=== PATIENT | male | born 1995 | race American Indian/Alaskan Native ===

== ENCOUNTER 2020-06-17 15:13 | Emergency (ER) | payer MEDICAID, SELFPAY ==
[2020-06-17 17:44] VITALS: BP 119/79; PULSE 64; RESP 18; TEMP 37.4; O2SAT 99; BMI 20.9
--- NOTE | 2020-06-17 18:41 | ED_ITS ---
HPI - Headache General Chief Complaint: Headache Stated Complaint: headache Time Seen by Provider: 06/17/20 18:30 Source: patient Mode of arrival: ambulatory History of Present Illness HPI Narrative: patient is a 25-year-old male with past medical history of migraines, substance abuse including ETOH and marijuana, syncope complaining of a headache, nausea and 1 episode of vomiting yesterday, 1 episode of vomiting today. Denies fevers chills cough congestion shortness of breast chest pain. states he has not been able to keep any food down since yesterday. He denies using any marijuana the past 3 days and says he only smokes a half a joint per day. He did say he took some Advil with no relief and some Pepto-Bismol with with no relief. Denies any sick contacts, trauma, photophobia or phonophobia. Related Data Allergies Allergy/AdvReac Type Severity Reaction Status Date / Time No Known Allergies Allergy Verified 06/17/20 17:44 [No Known Allergies*] Review of Systems Review of Systems: Constitutional: No Weight loss, No Fever, No Chills, No Night Sweats, No Fatigue, No Malaise ENT/Mouth: No Hearing loss, No Ear Pain, No Nasal Congestion, No Sinus Pain, No Hoarseness, No sore throat, No Rhinorrhea, No Swallowing Difficulty Cardiovascular: No Chest Pain, No SOB, No Dyspnea on Exertion, No Orthopnea, No Edema, No Palpitations Respiratory: No Cough, No Sputum, No Wheezing, No Smoke Exposure, No Dyspnea Gastrointestinal: + Nausea,+ Vomiting, No Diarrhea, No Constipation, No abdominal Pain, No Hematochezia, No Melena Genitourinary: no irregular bleeding, No Dysuria, No Urinary Frequency, No Hematuria, No Urinary Incontinence, No Urgency, No Flank Pain, No Urinary Flow Changes, No Hesitancy Musculoskeletal: No joint pain, No Myalgias, No Joint Swelling Skin: No Skin Lesions, No rash Neuro: + headache, No Weakness, No Numbness, No Paresthesias, No Loss of Consciousness, No Dizziness Yes all other systems are reviewed and are negative [facility] Past Medical History Attestation statement: The following information was validated with the patient. Medical History (Updated 06/17/20 @ 20:09 by MARGARITO Guillen) Migraines Substance use disorder Syncope Social History Social History (Updated 06/17/20 @ 18:45 by MARGARITO Guillen) Use of substances other than those prescribed or required for medical reasons: Yes Substance Use Type: Marijuana Substance Use Frequency: Daily Last Used Substance Other:: 3 days ago, admits to half a blunt per day Advance Directives: No Advance Directives Information Provided: No Physical Exam Vital Signs: Vital Signs: Vital Signs Temp Pulse Resp BP Pulse Ox 06/17/20 17:44 99.3 F 64 18 119/79 99 Body Mass Index 20.9 Const: General: cooperative, healthy appearing, comfortable, no acute distress and well developed Orientation/consciousness: patient oriented x3 Limitations: no limitations HENMT: Head: Yes normal to inspection Eyes: General: appearance normal, both eyes and all related structures Pupils: Equal, round and reactive pupils present Neck: Neck: Yes normal visual inspection, Yes full ROM and Yes supple Chest: Chest palpation & inspection: normal inspection of the chest Resp: Effort & Inspection: normal respiratory effort and able to speak in complete sentences Auscultation: clear to auscultation bilaterally Cardio: Rate: regular rate Rhythm: regular rhythm Heart sounds: normal S1 and S2 GI: Inspection: Yes normal to inspection Palpation (GI): Soft to palpation, nontender and No hepatosplenomegaly present Auscultation: normal bowel sounds Skin: General skin exam: no rashes or lesions noted Neuro: General: patient oriented x3 Cranial nerves: Yes Equal, round and reactive pupils present Extrem: General: Yes normal to inspection Psych: Appearance: grossly normal Course Course Course Narrative: patient is a 25-year-old male with past medical history of migraines, substance abuse including marijuana and EtOH, syncope complaining of 2 days of reduced appetite, nausea and 2 episodes of vomiting. Will get labs, give IV fluids, Reglan, Toradol and reassess. 8:08pm Went to check on patient to see how he was feeling and he was not in the room, the nurse states she has not seen him in about 45 minutes. No labs were drawn. He did received Toradol and Reglan. Assuming he left on his own. MDM - Headache Differential Diagnosis Differential diagnosis: Likely migraine, meningitis ( no meningeal signs so very unlikely) and postconcussion syndrome ( No trauma so less likely) Medical Records Attestation: I reviewed the patient's medical records. Discharge Plan Discharge Clinical Impression: Migraines Qualifiers: Migraine type: without aura Status migrainosus presence: without status migrainosus Intractability: not intractable Qualified Code(s): G43.009 - Migraine without aura, not intractable, without status migrainosus Patient Disposition: Elopement
== END 2020-06-17 20:54 | disposition left against medical advice (07) ==
PROVIDERS: Emergency Provider Internal Medicine
DX: G43.009 Migraine without aura, not intractable, without status migrainosus (principal); F12.90 Cannabis use, unspecified, uncomplicated; R11.2 Nausea with vomiting, unspecified
CPT/HCPCS: 96361; 96374; 96375; 99283; 99284

== ENCOUNTER 2020-08-19 11:59 | Outpatient (REF) | payer MEDICAID, SELFPAY | END 2020-08-19 12:00 | disposition home or self-care (01) | LOC: HO.LAB 11:59 | PROVIDERS: Visit Provider Internal Medicine | DX: Z20.828 Contact with and (suspected) exposure to other viral communicable diseases (principal) | CPT/HCPCS: C9803; U0003 ==

== ENCOUNTER 2022-11-26 17:53 | Emergency (ER) | payer MEDICAID, SELFPAY ==
[2022-11-26 18:09] VITALS: BP 146/90; PULSE 73; RESP 18; TEMP 37.1; O2SAT 98; BMI 22.6
--- NOTE | 2022-11-26 18:10 | ED_ITS ---
HPI - Male Genitourinary General Chief complaint: Skin/Abscess/Foreign Body <MARGARITO Maharaj Last Filed: 11/26/22 18:13> Stated complaint: private issue <MARGARITO Maharaj Last Filed: 11/26/22 18:13> Time Seen by Provider: 11/26/22 20:53 <MARGARITO Maharaj Last Filed: 11/26/22 18:13> Source: patient <MARGARITO Maguire Last Filed: 11/26/22 22:22> Mode of arrival: ambulatory <MARGARITO Maguire Last Filed: 11/26/22 22:22> Limitations: no limitations <MARGARITO Maguire Last Filed: 11/26/22 22:22> History of Present Illness HPI Narrative: This is a 27-year-old male history of substance use disorder, migraines presenting to the emergency department for evaluation of ulcers on penis that have been present for the past 4 days. Patient reports that these ulcers on the shaft of the penis or painful in some of them are crusting. This is never happened to him before. Patient tells me he is not concerned for STDs however would like prophylactic treatment. Patient denies testicular pain, penile discharge or bleeding, dysuria, polyuria, abdominal pain, nausea, vomiting, chest pain, shortness of breath, fevers and chills. <MARGARITO Maguire Last Filed: 11/26/22 22:22> Related Data Home medications: Previous Rx's Medication Instructions Recorded doxycycline hyclate 100 mg capsule 100 mg PO BID 10 days #20 caps 11/26/22 metronidazole 500 mg tablet 500 mg PO BID 7 days #14 tabs 11/26/22 valacyclovir 1 gram tablet 1,000 mg PO BID 7 days #14 tabs 11/26/22 (Valtrex) <MARGARITO Maharaj Last Filed: 11/26/22 18:13> Allergies/Adverse reactions: Allergies Allergy/AdvReac Type Severity Reaction Status Date / Time No Known Allergies Allergy Verified 06/17/20 17:44 [No Known Allergies*] <MARGARITO Maharaj Last Filed: 11/26/22 18:13> Review of Systems Review of Systems: Constitutional : No Weight loss, No Fever, No Chills, No Fatigue, No Malaise ENT/Mouth : No sore throat, No Rhinorrhea Eyes: No Eye Pain, No Swelling, No Redness Cardiovascular : No Chest Pain, No SOB, No Dyspnea on Exertion, No Orthopnea, No Edema, No Palpitations Respiratory : No Cough, No Sputum, No Wheezing Gastrointestinal : No Nausea, No Vomiting, No Diarrhea, No Constipation, No abdominal Pain, No Hematochezia, No Melena Genitourinary : No Dysuria, No Urinary Frequency, No Hematuria, + genital ulcer Musculoskeletal : No joint pain, No Myalgias, No Joint Swelling Skin : No Skin Lesions, No rash Neuro : No Weakness, No Numbness, No Dizziness, No Headache Psych : No Anxiety/Panic, No Depression All other systems reviewed and are negative <MARGARITO Maguire - Last Filed: 11/26/22 22:22> Yes all other systems are reviewed and are negative <MARGARITO Maguire - Last Filed: 11/26/22 22:22> FOR[facility]LY [facility], [facility] Past Medical History Attestation statement: The following information was validated with the patient. <MARGARITO Maguire - Last Filed: 11/26/22 22:22> Source: old records reviewed and nursing notes reviewed <MARGARITO Maguire - Last Filed: 11/26/22 22:22> Medical History: Medical History Migraines Substance use disorder Syncope <MARGARITO Maharaj - Last Filed: 11/26/22 18:13> Social History Social History: Social History Substance Use Type: Marijuana Advance Directives: No Advance Directives Information Provided: Yes <MARGARITO Maharaj - Last Filed: 11/26/22 18:13> Physical Exam Vital Signs: Vital Signs: Last Vital Signs Temp 98.7 F 11/26/22 20:56 Pulse 66 11/26/22 20:56 Resp 17 11/26/22 20:56 BP 145/75 H 11/26/22 20:56 Pulse Ox 100 11/26/22 20:56 O2 Del Method Room Air 11/26/22 20:56 BMI result Body Mass Index 22.6 <MARGARITO Maharaj - Last Filed: 11/26/22 18:13> Vital Signs: Last Vital Signs Temp 98.7 F 11/26/22 20:56 Pulse 66 11/26/22 20:56 Resp 17 11/26/22 20:56 BP 145/75 H 11/26/22 20:56 Pulse Ox 100 11/26/22 20:56 O2 Del Method Room Air 11/26/22 20:56 BMI result Body Mass Index 22.6 vss <MARGARITO Maguire - Last Filed: 11/26/22 22:22> Appearance: Alert.? Oriented X3.? No acute distress.? Head: Normocephalic, atraumatic, no step-offs or deformities Eyes: Pupils equal, round and reactive to light.? Neck: Normal inspection.? Neck supple.? CVS: Normal heart rate and rhythm.? Pulses normal.? Respiratory: No respiratory distress.? Breath sounds normal.? Abdomen: Soft and nontender.? Skin: Skin warm and dry.? Normal skin color.? Normal skin turgor.? Extremities: No lower extremity edema.? No calf ttp. 5/5 strength to bilateral upper and lower extremities Sensitive exam: + genital ulcer to the 03:00 o'clock and 9 o'clock position on shaft of penis painful to palpation with slight crusting and discharged. No penile discharge. No tenderness to palpation of testicles. Neuro: Oriented X 3.? No motor deficit.? No sensory deficit. CN 2-12 intact <MARGARITO Maguire - Last Filed: 11/26/22 22:22> Course Course Course Narrative: RME - 27 yo male presents to the ER for evaluation of a painful pimple on his penis for the last 3 days. No urinary symptoms or discharge. Will plan for UA, CT/NG and herpes swab. +/- syphilis depending on exam. <MARGARITO Maharaj - Last Filed: 11/26/22 18:13> Reevaluation(s) Reevaluation #1: UA without infection. Chlamydia, gonorrhea, herpes and syphilis pending at this time. Labs are pending on patient. <MARGARITO Maguire - Last Filed: 11/26/22 22:22> Time: 21:41 <MARGARITO Maguire - Last Filed: 11/26/22 22:22> Reevaluation #2: CBC within normal limits. Chemistry unremarkable. Serology pending. Safe to give viral test at this time is patient has normal renal function. Educated patient on diagnosis and treatment plan, answered all question, patient verbalizes understanding. At this time patient will be discharged home, advised to return with new or worsening symptoms. Educated on worrisome signs and symptoms and when to return. At this time I feel comfortable discharge home. <MARGARITO Maguire - Last Filed: 11/26/22 22:22> Time: 22:21 <MARGARITO Maguire - Last Filed: 11/26/22 22:22> Medical Decision Making Medical Decision Making [facility] Narrative: [id number] This is a 27-year-old male history of substance use disorder, migraines presenting to the emergency department for evaluation of ulcers on penis that have been present for the past 4 days. On exam genital ulcer to the 03:00 o'clock and 9 o'clock position on shaft of penis painful to palpation with slight crusting and discharged. No penile discharge. No tenderness to palpation of testicles. Kamron waldrop at bedside as wedding decorator Concerns for genital herpes. Other differentials include STDs , UTI versus cystitis, contact dermatitis, eczema Plan at this time is prophylactic treatment as patient is agreeable to it. I will obtain baseline renal functions prior to initiating antiviral therapy Patient agrees to prophylactic treatment for herpes, gonorrhea, chlamydia and trichomonas. 500mg IM ceftriaxone has been given here and scripts for doxycycline 100 mg po BID X 7 days, valacyclovir 100 mg p.o. b.i.d. x7 days and metronidazole 500 mg po BID X 7 days have been given to the patient. Educated on safe sex practices, full pannel STD testing and speaking to? partners on possible STD. Plan urine, syphillis test <MARGARITO Maguire - Last Filed: 11/26/22 22:22> Differential Diagnosis Differential Diagnoses: The differential diagnosis associated with the presentation includes <MARGARITO Maguire Last Filed: 11/26/22 22:22> Concerns for genital herpes. Other differentials include STDs , UTI versus cystitis, contact dermatitis, eczema <MARGARITO Maguire - Last Filed: 11/26/22 22:22> Admission/Observation Consideration of admission/observation: Escalation of care including admission/observation considered <MARGARITO Maguire - Last Filed: 11/26/22 22:22> Lab Data MDM Lab Attestation statement: I reviewed the patient's lab results. <MARGARITO Maguire - Last Filed: 11/26/22 22:22> Result Diagrams: 11/26/22 21:42 11/26/22 21:42 <MARGARITO Maharaj - Last Filed: 11/26/22 18:13> Labs: Lab Results 11/26/22 11/26/22 11/26/22 Range/Units 20:50 21:42 21:42 WBC 9.4 (4.8-10.8) X10*3/uL RBC 4.76 (4.60-5.80) X10*6/uL Hgb 14.9 (14.0-18.0) g/dl Hct 43.8 (42.0-52.0) % MCV 92.0 (80.0-98.0) fL MCH 31.3 (27.0-33.0) pg MCHC 34.0 (31.0-36.0) g/dl RDW 11.4 (11.0-16.0) % Plt Count 243 (160-400) X10*3/uL MPV 10.7 (9.4-12.4) fL Immature Gran % (Auto) 0.3 (0.0-0.4) % Neut % (Auto) 59.9 (45-73) % Lymph % (Auto) 28.7 (20-40) % [place] % (Auto) 7.8 (2-11) % Eos % (Auto) 2.8 (0-4) % Baso % (Auto) 0.5 (0-2) % Lymph # (Auto) 2.7 (1.2-4.9) X10*3/uL [place] # (Auto) 0.7 (0.1-1.2) X10*3/uL Eos # (Auto) 0.3 (0.0-0.4) X10*3/uL Baso # (Auto) 0.1 (0.0-0.2) X10*3/uL Abs Immat Gran (auto) 0.03 (0.00-0.03) X10*3/uL Absolute Neuts (auto) 5.6 (2.0-8.3) x10*3/uL Absolute Nucleated RBC 0.000 (0.0-0.012) X10*3/uL Nucleated RBC % (auto) 0.0 (0.0-0.2) /100WBC Sodium 142 (135-145) mmol/L Potassium 4.3 (3.3-5.1) mmol/L Chloride 103 (96-108) mmol/L Carbon Dioxide 30 H (22-29) mmol/L Anion Gap 13 (12-20) BUN 14 (9-16) mg/dL Creatinine 1.10 (0.5-1.4) mg/dL Estim Creat Clear Calc 104.0 Estimated GFR > 60 Random Glucose 73 (60-115) mg/dL Calcium 9.8 (8.4-10.2) mg/dL Total Bilirubin 0.8 (0.0-1.0) mg/dL AST 22 (5-37) U/L ALT 22 (0-40) U/L Alkaline Phosphatase 88 (39-117) U/L Total Protein 7.3 (6.5-8.0) g/dL Albumin 4.7 (3.5-5.0) g/dL Urine Color Yellow Urine Appearance Clear Urine pH 6.0 (5.0-9.0) Ur Specific [place] 1.020 (1.005-1.025) Urine Protein Negative (Neg-Trace) mg/dL Urine Glucose (UA) Negative (Negative) mg/dL Urine Ketones Negative (Negative) mg/dL Urine Blood Negative (Negative) Urine Nitrite Negative (Negative) Ur Leukocyte Esterase Trace H (Negative) Urine RBC 0-2 (0-2) /HPF Urine WBC 6-10 H (0-5) /HPF Ur Squamous Epith Cells 0-2 (0-2) /HPF Urine Bacteria None Seen (None Seen) Hyaline Casts 0-2 (0-2) /LPF <MARGARITO Maharaj - Last Filed: 11/26/22 18:13> Lab Results 11/26/22 11/26/22 11/26/22 Range/Units 20:50 21:42 21:42 WBC 9.4 (4.8-10.8) X10*3/uL RBC 4.76 (4.60-5.80) X10*6/uL Hgb 14.9 (14.0-18.0) g/dl Hct 43.8 (42.0-52.0) % MCV 92.0 (80.0-98.0) fL MCH 31.3 (27.0-33.0) pg MCHC 34.0 (31.0-36.0) g/dl RDW 11.4 (11.0-16.0) % Plt Count 243 (160-400) X10*3/uL MPV 10.7 (9.4-12.4) fL Immature Gran % (Auto) 0.3 (0.0-0.4) % Neut % (Auto) 59.9 (45-73) % Lymph % (Auto) 28.7 (20-40) % [place] % (Auto) 7.8 (2-11) % Eos % (Auto) 2.8 (0-4) % Baso % (Auto) 0.5 (0-2) % Lymph # (Auto) 2.7 (1.2-4.9) X10*3/uL [place] # (Auto) 0.7 (0.1-1.2) X10*3/uL Eos # (Auto) 0.3 (0.0-0.4) X10*3/uL Baso # (Auto) 0.1 (0.0-0.2) X10*3/uL Abs Immat Gran (auto) 0.03 (0.00-0.03) X10*3/uL Absolute Neuts (auto) 5.6 (2.0-8.3) x10*3/uL Absolute Nucleated RBC 0.000 (0.0-0.012) X10*3/uL Nucleated RBC % (auto) 0.0 (0.0-0.2) /100WBC Sodium 142 (135-145) mmol/L Potassium 4.3 (3.3-5.1) mmol/L Chloride 103 (96-108) mmol/L Carbon Dioxide 30 H (22-29) mmol/L Anion Gap 13 (12-20) BUN 14 (9-16) mg/dL Creatinine 1.10 (0.5-1.4) mg/dL Estim Creat Clear Calc 104.0 Estimated GFR > 60 Random Glucose 73 (60-115) mg/dL Calcium 9.8 (8.4-10.2) mg/dL Total Bilirubin 0.8 (0.0-1.0) mg/dL AST 22 (5-37) U/L ALT 22 (0-40) U/L Alkaline Phosphatase 88 (39-117) U/L Total Protein 7.3 (6.5-8.0) g/dL Albumin 4.7 (3.5-5.0) g/dL Urine Color Yellow Urine Appearance Clear Urine pH 6.0 (5.0-9.0) Ur Specific [place] 1.020 (1.005-1.025) Urine Protein Negative (Neg-Trace) mg/dL Urine Glucose (UA) Negative (Negative) mg/dL Urine Ketones Negative (Negative) mg/dL Urine Blood Negative (Negative) Urine Nitrite Negative (Negative) Ur Leukocyte Esterase Trace H (Negative) Urine RBC 0-2 (0-2) /HPF Urine WBC 6-10 H (0-5) /HPF Ur Squamous Epith Cells 0-2 (0-2) /HPF Urine Bacteria None Seen (None Seen) Hyaline Casts 0-2 (0-2) /LPF <MARGARITO Maguire - Last Filed: 11/26/22 22:22> Core Measures AMI core measures followed: Yes <MARGARITO Maguire - Last Filed: 11/26/22 22:22> Measure exclusions: not indicated <MARGARITO Maguire - Last Filed: 11/26/22 22:22> Critical Care Time Critical Care Time Critical Care Time: No <MARGARITO Maguire - Last Filed: 11/26/22 22:22> Discharge Plan Discharge Clinical Impression: Penile ulcer <MARGARITO Maharaj - Last Filed: 11/26/22 18:13> Patient Disposition: Home, Self-Care <MARGARITO Maharaj - Last Filed: 11/26/22 18:13> Instructions: Sexually Transmitted Diseases (ED), Safe Sex Practices (ED), Sexually Transmitted Diseases in Adolescents (ED) <MARGARITO Maharaj - Last Filed: 11/26/22 18:13> Additional Instructions: Take your medications as prescribed. If you were prescribed antibiotics today, it is important that you take your medication to their entirety, do not skip any doses, do not finish them early. Follow-up with your primary care provider this week. Return to the emergency department with new or worsening symptoms. Such as fevers, chills, chest pain, shortness of breath, nausea, vomiting, dizziness, headache, vision changes, lethargy In case of emergency call 911 You were treated here today with ceftriaxone, a medication that treats gonor christi. I have sent to your pharmacy Metronidazole that covers trichomonas, and Doxycycline which covers for chlamydia as well as valcyclovir that covers for herpes. Please be reevaluated by a healthcare provider after completing your antibiotics. Do not stop them early, do not skip any doses. Until you are reevaluated by a health care provider please practice safe sex as disucussed. Please also have a conversation with your sexual partners.? I also advise you to obtain full panel STD testing to test for other STDs including HIV, Hepatitis B & C and syphilis with your PCP or a local clinic. <MARGARITO Maharaj - Last Filed: 11/26/22 18:13> Prescriptions: New doxycycline hyclate 100 mg capsule 100 mg PO BID 10 Days Qty: 20 0RF metronidazole 500 mg tablet 500 mg PO BID 7 Days Qty: 14 0RF valacyclovir [Valtrex] 1 gram tablet 1,000 mg PO BID 7 Days Qty: 14 0RF <MARGARITO Maharaj - Last Filed: 11/26/22 18:13> Referrals: Physician,None [Primary Care Provider] - 2 days <MARGARITO Maharaj - Last Filed: 11/26/22 18:13> Stand Alone Forms: Work/School Release <MARGARITO Maharaj - Last Filed: 11/26/22 18:13>
[2022-11-26 20:56] VITALS: BP 145/75; PULSE 66; RESP 17; TEMP 37.1; O2SAT 100
[2022-11-26 20:58] LABS: Appearance Urine Clear; Color Urine Yellow; Glucose Urine UA Negative (Negative); Leukocyte Esterase Urine Trace (Negative); Nitrite Urine Negative (Negative); UMIC TRIGGER UACC YES; Urine Blood Negative (Negative); Urine Ketones Negative (Negative); Urine Protein Negative (Neg-Trace)
[2022-11-26 21:24] LABS: Bacteria Urine None Seen (None Seen); Hyaline Casts Urine 0-2 /LPF (0-2); RBC Urine 0-2 /HPF (0-2); Squamous Epithelial Cell Urine 0-2 /HPF (0-2); UACC Culture Trigger YES
[2022-11-26 21:52] LABS: MANUAL DIFF FLAG NO
[2022-11-26 22:02] LABS: Basophils Absolute Auto 0.1 X10*3/uL (0.0-0.2); Basophils Percent Auto 0.5 % (0-2); Eosinophils Absolute Auto 0.3 X10*3/uL (0.0-0.4); Eosinophils Percent Auto 2.8 % (0-4); Hematocrit 43.8 % (42.0-52.0); Hemoglobin 14.9 g/dl (14.0-18.0); Imm Gran Abs Auto 0.03 X10*3/uL (0.00-0.03); Imm Gran Pct Auto 0.3 % (0.0-0.4); Lymphocytes Absolute Auto 2.7 X10*3/uL (1.2-4.9); Lymphocytes Percent Auto 28.7 % (20-40); Mean Corpuscular Hemoglobin 31.3 pg (27.0-33.0); Mean Platelet Volume 10.7 fL (9.4-12.4); Monocytes Absolute Auto 0.7 X10*3/uL (0.1-1.2); Monocytes Percent Auto 7.8 % (2-11); Neutrophils Absolute Auto 5.6 x10*3/uL (2.0-8.3); Neutrophils Percent Auto 59.9 % (45-73); Platelet Count 243 X10*3/uL (160-400); Red Blood Count 4.76 X10*6/uL (4.60-5.80); Red Cell Distribution Width 11.4 % (11.0-16.0); White Blood Count 9.4 X10*3/uL (4.8-10.8)
[2022-11-26 22:08] LABS: Alanine Aminotransferase 22 U/L (0-40); Albumin Level 4.7 g/dL (3.5-5.0); Alkaline Phosphatase 88 U/L (39-117); Anion Gap 13 (12-20); Aspartate Amino Transferase 22 U/L (5-37); Bilirubin Total 0.8 mg/dL (0.0-1.0); Blood Urea Nitrogen 14 mg/dL (9-16); Calcium 9.8 mg/dL (8.4-10.2); Carbon Dioxide 30 mmol/L (22-29); Chloride 103 mmol/L (96-108); Estimated Glomerular Filt Rate > 60; Glucose Random 73 mg/dL (60-115); Potassium 4.3 mmol/L (3.3-5.1); Sodium 142 mmol/L (135-145); Total Protein 7.3 g/dL (6.5-8.0)
[2022-11-26] MEDS: Doxycycline Monohydrate 100 MG CAPSULE PO (22:46)
[2022-11-26] MEDS: valACYclovir HCL 1,000 MG TABLET 1000 MG PO (22:47)
[2022-11-26] MEDS: metroNIDAZOLE 500 MG TABLET PO (22:47)
[2022-11-26] MEDS: cefTRIAXone sodium 500 MG, Lidocaine HCl 1 % MPF 1 ML IM (22:47)
[2022-11-27 02:26] LABS: CT PCR DETECTED (Not Detect.); NG PCR NOT DETECTED (Not Detect.)
[2022-11-27 07:31] LABS: Syphilis Screen Nonreactive (Nonreactive)
== END 2022-11-26 22:59 | disposition home or self-care (01) ==
PROVIDERS: Physician Assistant; Emergency Provider Emergency Medicine Emergency Medical Services
DX: N48.5 Ulcer of penis (principal); G43.909 Migraine, unspecified, not intractable, without status migrainosus; Z79.899 Other long term (current) drug therapy; Z20.2 Contact with and (suspected) exposure to infections with a predominantly sexual mode of transmission
CPT/HCPCS: 0353U; 36415; 80053; 81001; 81003; 85025; 86780; 87086; 87255; 96372; 99283; 99284; J0696

== ENCOUNTER 2024-03-03 14:09 | Emergency (ER) | payer MEDICAID, SELFPAY ==
[2024-03-03 14:14] VITALS: BP 139/89; PULSE 59; RESP 18; TEMP 36.6; O2SAT 99; BMI 21.9
--- NOTE | 2024-03-03 14:40 | ED_ITS ---
HPI - Male Genitourinary General Chief complaint: Urogenital-Male Stated complaint: painful urination Time Seen by Provider: 03/03/24 14:39 Source: patient Mode of arrival: ambulatory Limitations: no limitations History of Present Illness ED Provider: Pilar Hopper PA-C HPI Narrative: Patient is a 28 year old assigned male at with a history of substance use disorder and migraines presenting to the emergency department today with burning upon urination and a rash on his penis. Patient states that he has been having an excessive amount of sex over the last 3 days as well as burning with urination. Patient states that he has not been using any kind of lubrication during sexual intercourse, including condoms. Patient denies any dizziness, lightheadedness, abdominal pain, nausea, vomiting, fever, chills, blurry vision, double vision, loss of vision, chest pain, difficulty breathing, shortness of breath, back pain, night sweats, increased urinary frequency, increased urinary urgency, blood in his urine or stool, syncope or a near syncopal episode, recent trauma or falls, bowel incontinence, bladder incontinence, or any other complaints at this time. MD Complaint: dysuria and possible STD exposure Onset (ago): day(s) (3) Duration: constant Location: penis Severity: mild Severity scale (1-10): 4 Relieving factors: none Exacerbating factors: none Associated symptoms: Reports rash Related Data Sexually active: Yes Previous Rx's ?Medication ?Instructions ?Recorded doxycycline hyclate 100 mg capsule 100 mg PO BID 10 days #20 caps 11/26/22 metronidazole 500 mg tablet 500 mg PO BID 7 days #14 tabs 11/26/22 valacyclovir 1 gram tablet 1,000 mg PO BID 7 days #14 tabs 11/26/22 (Valtrex) cephalexin 500 mg capsule 500 mg PO Q6H 7 days #28 caps 03/03/24 doxycycline hyclate 100 mg tablet 100 mg PO BID 7 days #14 tabs 03/03/24 Allergies Allergy/AdvReac Type Severity Reaction Status Date / Time No Known Allergies Allergy Verified 03/03/24 14:16 [No Known Allergies*] Review of Systems Constitutional: Constitutional: Reports no additional constitutional complaints, Denies chills, Denies fever(s) and Denies night sweats Eyes: Eyes: Reports no additional eye complaints, Denies blurry vision, Denies change in vision, Denies diplopia, Denies eye discharge, Denies loss of vision and Denies eye pain ENT: Denies dizziness Cardiovascular: Cardiovascular: Reports no additional cardiovascular complaints, Denies chest pain, Denies lightheadedness, Denies Loss of Consciousness and Denies dyspnea Respiratory: Respiratory: Reports no additional respiratory complaints and Denies dyspnea Gastrointestinal: Gastrointestinal: Reports no additional gastrointestinal complaints, Denies abdominal pain, Denies melena, Denies hematochezia, Denies change in bowel habits and Denies change in stool character Genitourinary: Genitourinary: Reports no additional male genitourinary complaints, Denies hematuria, Denies oliguria, Denies difficulty urinating, Reports genital pain, Reports dysuria, Denies urinary frequency, Denies urinary hesitancy, Denies urinary incontinence and Denies urinary urgency Musculoskeletal: Musculoskeletal: Reports no additional musculoskeletal com plaints, Denies numbness and Denies tingling Neurologic: Denies dizziness, Denies loss of vision, Denies numbness and Denies tingling Psychiatric: Psychiatric: Reports no additional psychiatric complaints Endocrine: Endocrine: Reports no additional endocrine complaints Hematologic/Lymphatic: Hematologic/Lymphatic: Reports no additional hematologic/lymphatic complaints Allergic/Immunologic: Allergic/Immunologic: Reports no additional allergic/immunologic complaints PMFSH Past Medical History Attestation statement: The following information was validated with the patient. Source: old records reviewed and nursing notes reviewed Medical History Syncope Substance use disorder Migraines Social History Social History Substance Use Type: Marijuana Advance Directives: No Advance Directives Information Provided: Yes Do you have a plan to hurt others: No Plan Physical Exam Vital Signs: Vital Signs: Last Vital Signs Temp 97.8 F 03/03/24 16:38 Pulse 59 03/03/24 16:38 Resp 18 03/03/24 16:38 BP 139/89 03/03/24 16:38 Pulse Ox 99 03/03/24 16:38 O2 Del Method Room Air 03/03/24 16:38 BMI result Body Mass Index 21.9 Const: General: cooperative, no acute distress, alert and awake Nutritional Appearance: well nourished Orientation/consciousness: patient oriented x3 Limitations: no limitations HEENT: Head: Yes normal to inspection and Yes atraumatic Ears: hearing grossly normal bilaterally and external ears normal General nose exam: Normal external nose present, no nasal discharge noted and no epistaxis Face and sinus: Yes normal facial exam, No abrasion and No laceration Mouth: Normal oral and palatal mucosa present, no drooling and no muffled voice Eyes: General: appearance normal, both eyes and all related structures Periorbital: periorbital findings normal Eyelids: Yes eyelids normal Conjunctivae: conjunctivae normal Pupils: Equal, round and reactive pupils present EOM: EOMs intact bilaterally Neck: Neck: Yes normal visual inspection, Yes full ROM and Yes no lymphadenopathy Chest: Chest palpation & inspection: normal inspection of the chest Resp: Effort & Inspection: normal respiratory effort and able to speak in complete sentences GI: Inspection: Yes normal to inspection : Male General Exam: Yes other (chafing present to the shaft of the penis) Neuro: General: patient oriented x3 and moves all extremities Cranial nerves: Yes Equal, round and reactive pupils present Cognition (Neuro): normal cognition Extrem: General: Yes normal to inspection, Yes full ROM and Yes capillary refill normal Psych: Appearance: grossly normal Mental Status: mental status grossly normal Affect: normal affect Attitude: cooperative Thought process: Normal thought process present Thought content: Normal thought content present Insight: Good insight present (Psych) Medications Administered Discontinued Medications Generic Name Dose Route Start Last Admin Trade Name Freq PRN Reason Stop Dose Admin Ceftriaxone Sodium 500 mg/ 0 mg 03/03/24 16:15 03/03/24 16:36 Lidocaine HCl 1 ml IM 03/03/24 16:16 500 kit ONCE ONE Administration Doxycycline Monohydrate 100 mg 03/03/24 16:15 03/03/24 16:36 Doxycycline Monohydrate 100 Mg Capsule PO 03/03/24 16:16 100 mg ONCE ONE Administration Medical Decision Making Medical Decision Making MDM Narrative: Patient is a 28 year old assigned male at with a history of migraines and substance use disorder presenting to the emergency department today for possible STD exposure, painful urination, and a rash on his penis. Patient's physical exam was as noted in the physical exam portion of this note. Patient's exam was performed with a male drug abuse technician director clinical applications present. Patient's urine showed no acute process. At the time of visit, patient's CT/NG was pending. I explained my physical exam findings as well as all test results to the patient. I answered all questions asked by the patient. I stressed the importance of the patient taking his medication as directed (either prescribed or as the over the counter packaging recommends). I stressed the importance of the patient following up with his primary care provider. I stressed the importance of the patient returning to the emergency department immediately if his symptoms were to worsen or if he were to develop any dizziness, shortness of breath, difficulty breathing, chest pain, blurry vision, loss of vision, nausea, vomiting, abdominal pain, fever, chills, back pain, or any other complaints. Patient verbalized agreement and understanding with this treatment plan and discharge. Differential Diagnosis Differential Diagnoses: The differential diagnosis associated with the presentation includes Penile pain Dysuria UTI Gonorrhea Chlamydia Admission/Observation Consideration of admission/observation: Escalation of care including admission/ observation considered Patient would have been admitted to the hospital had his work up had any findings where hospital admission was appropriate and his clinical presentation warranted hospital admission. Lab Data [facility] Lab Attestation statement: I reviewed the patient's lab results. My interpretation of these results are in the [facility] Rationale portion of this note. Labs: Lab Results 03/03/24 Range/Units 15:15 Urine Color Yellow Urine Appearance Clear Urine pH 6.0 (5.0-9.0) Ur Specific [place] 1.020 (1.005-1.025) Urine Protein Negative (Neg-Trace) mg/dL Urine Glucose (UA) Negative (Negative) mg/dL Urine Ketones Negative (Negative) mg/dL Urine Blood Trace H (Negative) Urine Nitrite Negative (Negative) Ur Leukocyte Esterase Negative (Negative) Urine RBC 6-10 H (0-2) /HPF Urine WBC 0-5 (0-5) /HPF Ur Squamous Epith Cells 0-2 (0-2) /HPF Urine Bacteria None Seen (None Seen) Hyaline Casts 0-2 (0-2) /LPF Chlam trachomat DNA PCR NOT DETECTED (Not Detect.) N.gonorrhoeae DNA (PCR) NOT DETECTED (Not Detect.) Prescription Management I considered prescription management with: Antibiotic (patient prescribed prophylactic antibiotics for STD exposure with a history of polysubstance use disorder) Discharge Plan Discharge Clinical Impression: [place], Potential exposure to STD Patient Disposition: Home, Self-Care Instructions: Safe Sex Practices (ED) Additional Instructions: Please consider using lubricant when engaging in any sexual activity to avoid continued chafing of your penis. Follow up with your primary care provider. Return to the emergency department immediately if your symptoms worsen or if you develop any dizziness, shortness of breath, difficulty breathing, chest pain, blurry vision, loss of vision, nausea, vomiting, abdominal pain, fever, chills, back pain, or any other complaints. Prescriptions: New cephalexin 500 mg capsule 500 mg PO Q6H 7 Days Qty: 28 0RF doxycycline hyclate 100 mg tablet 100 mg PO BID 7 Days Qty: 14 0RF No Action doxycycline hyclate 100 mg capsule 100 mg PO BID 10 Days Qty: 20 0RF metronidazole 500 mg tablet 500 mg PO BID 7 Days Qty: 14 0RF valacyclovir [Valtrex] 1 gram tablet 1,000 mg PO BID 7 Days Qty: 14 0RF Referrals: [facility] Family Medicine [Provider Group] (Call to establish and follow up with a primary care provider. If you already have a primary care provider, please follow up with them.) [facility] [Provider Group] [facility] [Provider Group] Stand Alone Forms: Work/School Release Interventions: ED Discharge Assessment Last Done: 03/03/24 16:38 Discharge Date/Time: 03/03/24 16:40 Print Language: Citizen [place]
--- NOTE | 2024-03-03 15:14 | PC.NURSE ---
urine obtained/sent to lab. pt verbalizing open sores on the side of the head of his penis. pt verbalizes painful when using soap in the shower. denies discharge/fevers/chills.
[2024-03-03 15:27] LABS: Appearance Urine Clear; Color Urine Yellow; Glucose Urine UA Negative (Negative); Leukocyte Esterase Urine Negative (Negative); Nitrite Urine Negative (Negative); UMIC TRIGGER UACC YES; Urine Blood Trace (Negative); Urine Ketones Negative (Negative); Urine Protein Negative (Neg-Trace)
[2024-03-03 15:32] LABS: Bacteria Urine None Seen (None Seen); Hyaline Casts Urine 0-2 /LPF (0-2); Squamous Epithelial Cell Urine 0-2 /HPF (0-2); WBC Urine 0-5 /HPF (0-5)
[2024-03-03] MEDS: Doxycycline Monohydrate 100 MG CAPSULE PO (16:36)
[2024-03-03] MEDS: cefTRIAXone sodium 500 MG, Lidocaine HCl 1 % MPF 1 ML IM (16:36)
[2024-03-03 16:38] VITALS: BP 139/89; PULSE 59; RESP 18; TEMP 36.6; O2SAT 99
--- NOTE | 2024-03-03 16:40 | PC.NURSE ---
medication administered per provider order.
[2024-03-03 16:53] LABS: CT PCR NOT DETECTED (Not Detect.); NG PCR NOT DETECTED (Not Detect.)
== END 2024-03-03 16:40 | disposition home or self-care (01) ==
PROVIDERS: Emergency Provider Emergency Medicine
DX: L30.4 Erythema intertrigo (principal); Z20.2 Contact with and (suspected) exposure to infections with a predominantly sexual mode of transmission; R30.0 Dysuria
CPT/HCPCS: 81001; 87491; 87591; 96372; 99282; 99284; J0696

== ENCOUNTER 2024-07-04 00:35 | Emergency (ER) | payer MEDICAID, SELFPAY ==
[2024-07-04 00:51] VITALS: BP 139/93; PULSE 118; RESP 18; TEMP 36.8; O2SAT 99; BMI 19.0
[2024-07-04 01:43] LABS: MANUAL DIFF FLAG NO
[2024-07-04 01:45] LABS: Basophils Percent Auto 0.3 % (0-2); Eosinophils Percent Auto 0.2 % (0-4); Hematocrit 40.4 % (42.0-52.0); Hemoglobin 13.8 g/dl (14.0-18.0); Imm Gran Abs Auto 0.06 X10*3/uL (0.00-0.03); Imm Gran Pct Auto 0.5 % (0.0-0.4); Lymphocytes Absolute Auto 1.2 X10*3/uL (1.2-4.9); Mean Corpuscular HGB Conc 34.2 g/dl (31.0-36.0); Mean Corpuscular Hemoglobin 31.8 pg (27.0-33.0); Mean Corpuscular Volume 93.1 fL (80.0-98.0); Mean Platelet Volume 10.8 fL (9.4-12.4); Monocytes Absolute Auto 0.6 X10*3/uL (0.1-1.2); Monocytes Percent Auto 5.1 % (2-11); Neutrophils Absolute Auto 10.2 x10*3/uL (2.0-8.3); Neutrophils Percent Auto 83.9 % (45-73); Platelet Count 204 X10*3/uL (160-400); Red Blood Count 4.34 X10*6/uL (4.60-5.80); Red Cell Distribution Width 11.4 % (11.0-16.0); White Blood Count 12.1 X10*3/uL (4.8-10.8)
[2024-07-04 01:58] LABS: Alanine Aminotransferase 17 U/L (0-40); Albumin Level 4.9 g/dL (3.5-5.0); Alkaline Phosphatase 74 U/L (39-117); Anion Gap 17 (12-20); Aspartate Amino Transferase 23 U/L (5-37); Bilirubin Total 0.6 mg/dL (0.0-1.0); Blood Urea Nitrogen 20 mg/dL (9-16); Calcium 10.3 mg/dL (8.4-10.2); Carbon Dioxide 23 mmol/L (22-29); Chloride 105 mmol/L (96-108); Creatinine Clr Calc Pharmacy 83.3; Estimated Glomerular Filt Rate > 60; Glucose Random 95 mg/dL (60-115); Potassium 4.6 mmol/L (3.3-5.1); Sodium 140 mmol/L (135-145); Total Protein 7.8 g/dL (6.5-8.0)
[2024-07-04 04:17] VITALS: BP 136/85; PULSE 66; RESP 18; O2SAT 99
--- NOTE | 2024-07-04 06:14 | PC.NURSE ---
Pt no answer when called for reassessment.
== END 2024-07-04 06:15 | disposition left against medical advice (07) ==
PROVIDERS: Emergency Provider Emergency Medicine
DX: K62.89 Other specified diseases of anus and rectum (principal); Z53.21 Procedure and treatment not carried out due to patient leaving prior to being seen by health care provider
CPT/HCPCS: 36415; 80053; 85025; 99281

== ENCOUNTER 2024-07-04 06:32 | Emergency (ER) | payer MEDICAID, SELFPAY ==
[2024-07-04 06:36] VITALS: BP 142/92; PULSE 108; RESP 18; TEMP 36.7; O2SAT 99; BMI 19.0
--- NOTE | 2024-07-04 11:51 | ED.GENADULT ---
HPI - General Adult General Chief complaint: Abdominal Pain Stated complaint: Returning, hemorrhoid issues Time Seen by Provider: 07/04/24 11:36 Source: patient and RN notes reviewed Mode of arrival: ambulatory Limitations: no limitations History of Present Illness ED Provider: Amy Garza PA-C HPI narrative: This is a 29-year-old male who presents emergency department with complaints of rectal pain which started yesterday. Patient states that while he was at work he lifted a heavy objects weighing approximately 150 lb and felt rectal pain and pressure. States that the pain has been waxing and waning in severity. He denies history of hemorrhoids in the past. He also reports that he has had bloody stool for the last 5 months. He has an appointment with his primary care physician in August. He denies any other symptoms, he denies any fevers, chills, chest pain, shortness of breath, abdominal pain, nausea or vomiting. No other complaints or concerns at this time. MD complaint: Rectal pain Onset (ago): day(s) Radiation: non-radiation Relieving factors: none Exacerbating factors: none Associated symptoms: denies other symptoms Treatments prior to arrival: none Related Data Previous Rx's ?Medication ?Instructions ?Recorded doxycycline hyclate 100 mg capsule 100 mg PO BID 10 days #20 caps 11/26/22 metronidazole 500 mg tablet 500 mg PO BID 7 days #14 tabs 11/26/22 valacyclovir 1 gram tablet 1,000 mg PO BID 7 days #14 tabs 11/26/22 (Valtrex) cephalexin 500 mg capsule 500 mg PO Q6H 7 days #28 caps 03/03/24 doxycycline hyclate 100 mg tablet 100 mg PO BID 7 days #14 tabs 03/03/24 docusate calcium 240 mg capsule 240 mg PO BEDTIME #30 caps 07/04/24 phenylephrine 0.25 %-mineral oil 1 appl [place] BID PRN rectal 07/04/24 14 %-petrolatm 74.9 % rectal discomfort #28 grams ointment (Preparation H) polyethylene glycol 3350 17 17 g PO DAILY #119 grams 07/04/24 gram/dose oral powder (Miralax) Allergies Allergy/AdvReac Type Severity Reaction Status Date / Time No Known Allergies Allergy Verified 07/04/24 06:37 [No Known Allergies*] Review of Systems Review of Systems: Yes all other systems are reviewed and are negative Constitutional: Constitutional: Reports as per [facility] Past Medical History Medical History Syncope Substance use disorder Migraines Social History Social History Substance Use Type: Marijuana Advance Directives: No Advance Directives Information Provided: Yes Do you have a plan to hurt others: No Plan Physical Exam ED Vital Signs: Vital Signs - 24 hr 07/04/24 06:36 Temperature 98.1 F Pulse Rate 108 H Respiratory Rate 18 Blood Pressure 142/92 H Pulse Oximetry 99 Oxygen Delivery Method Room Air BMI result Body Mass Index 19.0 Const General: cooperative, comfortable and no acute distress Orientation/consciousness: patient oriented x3 Limitations: no limitations HENMT Head: Yes normal to inspection, Yes normocephalic and Yes atraumatic Ears: hearing grossly normal bilaterally General nose exam: Normal external nose present Face and sinus: Yes normal facial exam Mouth: Normal oral and palatal mucosa present, oropharynx normal and moist mucous membranes Throat: Yes posterior oropharynx normal Eyes General: appearance normal, both eyes and all related structures Eyelids: Yes eyelids normal Conjunctivae: conjunctivae normal Sclerae: sclerae normal Pupils: Equal, round and reactive pupils present EOM: EOMs intact bilaterally Neck Neck: Yes normal visual inspection, Yes full ROM and Yes no lymphadenopathy Lymphatic: no lymphadenopathy noted Chest Chest palpation & inspection: normal inspection of the chest Resp Effort & Inspection: normal respiratory effort and able to speak in complete sentences Auscultation: clear to auscultation bilaterally, no crackles, no rales, no rhonchi and no wheezes Cardio Rate: regular rate Rhythm: regular rhythm Heart sounds: S1 normal heart sound present and S2 normal heart sound present GI Other: Rectal examination performed with Roxana Orozco LPN, present at all times. Piece size external hemorrhoid noted at the 8 o'clock position, nonthrombosed, in colored, nontender to palpation. No external bleeding noted. Inspection: Yes normal to inspection Skin General skin exam: no rashes or lesions noted Trauma: no lacerations or abrasions Wounds: no wounds Neuro General: patient oriented x3 and moves all extremities Cranial nerves: Yes Equal, round and reactive pupils present Extrem General: Yes normal to inspection Right upper extremity: normal to inspection Left upper extremity: normal to inspection Right lower extremity: normal to inspection Left lower extremity: normal to inspection Medical Decision Making Medical Decision Making MDM Narrative: This is a 29-year-old male who presents emergency department with complaints of rectal pain starting yesterday after lifting a heavy object. On arrival, blood pressure 142/92, pulse 108, all other vital signs within normal limits. Patient checked in early this morning, and had labs performed, he had a slight leukocytosis, H&H within normal limits. He has had ongoing bloody stool for the last 5 months, he has an appointment with his primary care in August. Given referral to GI specialist for further management. Given H&H stable, he will follow-up outpatient. Differential Diagnosis Differential Diagnoses: The differential diagnosis associated with the presentation includes Thrombosed hemorrhoid, external hemorrhoids, internal hemorrhoids, mass Discharge Plan Discharge Clinical Impression: Acute hemorrhoid Patient Disposition: Home, Self-Care Instructions: Hemorrhoids (ED) Additional Instructions: You were seen in the emergency department due to rectal pain. You have evidence of a hemorrhoid, you may apply topical medicine as prescribed. Docusate and MiraLax can also help with constipation, discontinue this if you develop diarrhea. If any new or worsening symptoms occur including but not limited to worsening pain, fevers, chills, abdominal pain, chest pain, shortness for breath, please seek emergent care. Please follow-up with your primary care physician, and follow-up with the GI specialist due to bloody stool. Prescriptions: New Preparation H 0.25-14-74.9 % ointment 1 appl [place] BID PRN (Reason: rectal discomfort) Qty: 28 0RF polyethylene glycol 3350 [Miralax] 17 gram/dose powder 17 g PO DAILY Qty: 119 0RF docusate calcium 240 mg capsule 240 mg PO BEDTIME Qty: 30 0RF No Action doxycycline hyclate 100 mg capsule 100 mg PO BID 10 Days Qty: 20 0RF metronidazole 500 mg tablet 500 mg PO BID 7 Days Qty: 14 0RF valacyclovir [Valtrex] 1 gram tablet 1,000 mg PO BID 7 Days Qty: 14 0RF cephalexin 500 mg capsule 500 mg PO Q6H 7 Days Qty: 28 0RF doxycycline hyclate 100 mg tablet 100 mg PO BID 7 Days Qty: 14 0RF Referrals: [facility] [Provider Group] Stand Alone Forms: Work/School Release Print Language: [place]
[2024-07-04 14:18] VITALS: BP 142/92; PULSE 108; RESP 18; TEMP 36.7; O2SAT 99
== END 2024-07-04 14:19 | disposition home or self-care (01) ==
PROVIDERS: Emergency Provider Emergency Medicine
DX: K64.9 Unspecified hemorrhoids (principal); K62.89 Other specified diseases of anus and rectum
CPT/HCPCS: 99282; 99283

== ENCOUNTER 2024-08-30 10:30 | Outpatient (REF) | payer MEDICAID, SELFPAY ==
[2024-08-30 11:10] LABS: MANUAL DIFF FLAG NO
[2024-08-30 11:15] LABS: Basophils Percent Auto 0.5 % (0-2); Eosinophils Absolute Auto 0.4 X10*3/uL (0.0-0.4); Eosinophils Percent Auto 5.1 % (0-4); Hematocrit 43.7 % (42.0-52.0); Hemoglobin 14.9 g/dl (14.0-18.0); Imm Gran Abs Auto 0.04 X10*3/uL (0.00-0.03); Imm Gran Pct Auto 0.5 % (0.0-0.4); Lymphocytes Absolute Auto 2.1 X10*3/uL (1.2-4.9); Lymphocytes Percent Auto 25.4 % (20-40); Mean Corpuscular HGB Conc 34.1 g/dl (31.0-36.0); Mean Corpuscular Hemoglobin 32.2 pg (27.0-33.0); Mean Corpuscular Volume 94.4 fL (80.0-98.0); Mean Platelet Volume 10.7 fL (9.4-12.4); Monocytes Absolute Auto 0.7 X10*3/uL (0.1-1.2); Monocytes Percent Auto 8.7 % (2-11); Neutrophils Percent Auto 59.8 % (45-73); Platelet Count 218 X10*3/uL (160-400); Red Blood Count 4.63 X10*6/uL (4.60-5.80); Red Cell Distribution Width 11.4 % (11.0-16.0); White Blood Count 8.3 X10*3/uL (4.8-10.8)
[2024-08-30 11:50] LABS: Alanine Aminotransferase 18 U/L (0-40); Albumin Level 4.6 g/dL (3.5-5.0); Alkaline Phosphatase 86 U/L (39-117); Anion Gap 10 (12-20); Aspartate Amino Transferase 23 U/L (5-37); Bilirubin Total 0.5 mg/dL (0.0-1.0); Blood Urea Nitrogen 13 mg/dL (9-16); Calcium 9.5 mg/dL (8.4-10.2); Carbon Dioxide 27 mmol/L (22-29); Chloride 108 mmol/L (96-108); Estimated Glomerular Filt Rate > 60; Glucose Random 87 mg/dL (60-115); Potassium 4.3 mmol/L (3.3-5.1); Sodium 141 mmol/L (135-145); Total Protein 7.4 g/dL (6.5-8.0)
[2024-08-30 11:51] LABS: HIV AB/AG Nonreactive (Nonreactive); HIV Num 1 0.06 S/CO (0.00-0.99); ~HepC Num1 0.09 S/CO (0.00-0.79); ~Hepatitis C Antibody Nonreactive (Nonreactive)
[2024-08-30 12:07] LABS: TSH reflex Free T4 0.43 uIU/mL (0.32-4.0)
[2024-08-31 02:58] LABS: CT PCR NOT DETECTED (Not Detect.); NG PCR NOT DETECTED (Not Detect.)
[2024-09-01 14:43] LABS: RPR Rapid Plasma Reagin NON-REACTIVE (NON-REACTIVE)
== END 2024-08-30 10:31 | disposition home or self-care (01) ==
LOC: HO.HHCL 10:30
PROVIDERS: Internal Medicine; Visit Provider Nurse Practitioner Family
DX: Z00.00 Encounter for general adult medical examination without abnormal findings (principal); K59.09 Other constipation; K64.4 Residual hemorrhoidal skin tags; F32.4 Major depressive disorder, single episode, in partial remission
CPT/HCPCS: 36415; 80053; 84443; 85025; 86592; 86803; 87389; 87491; 87591

== ENCOUNTER 2024-11-28 13:34 | Outpatient (REF) | payer MEDICAID, SELFPAY ==
--- OUTSIDE RECORDS SUMMARY | 2024-11-28 16:31 | XMS_ITS | Encounter Summary ---
Author Organization [employer] Address [address] [place] [address] Care Team Providers Care Air Pollution Control Engineer Name Role Phone Mary Beth rFanklin NP Primary Care Provider [phone] Reason for Visit * Reason Onset Date Comments DERM APPOINTMENT 10/25/2024 Encounter Details Date Type Department Care Team ([facility] Contact Info) Description 10/25/2024 Telephone [facility] [address], [place] [phone] Mary Beth Franklin NP [address] [place] [address] DERM APPOINTMENT Social History Tobacco Use Types Packs/Day Years Used Date Smoking Tobacco: Never Passive Smoke Exposure: Never Smokeless Tobacco: Never Alcohol Answer Date Recorded Q1: How often do you have a drink containing alc ohol? 1 07/03/2024 Q2: How many drinks containi ng alcohol do you have on a typical day when you are drinking? 0 07/03/2024 Q3: How often do you have six or more drinks on one occasion? 1 07/03/2024 Depression Answer Date Recorded Patient Health Questionnaire-9 Score 24 08/31/2024 Patient Health Questionnaire-9 Score 24 08/31/2024 Last PHQ-9: Questionnaire Data Not on file 0 08/31/2024 Housing Stability Answer Date Recorded What is your housing situation today? I do not have housing (Staying with others, in a hotel, in a long-term, living outside on the street, on a beach, in a car, or in a park 08/18/[address] you li ve. Do you have problems with any of the following? None of the above 08/18/2024 Food Insecurity Answer Date Recorded Within the past 12 months, y ou worried that your food would run out before you got money to buy more: Sometimes True 2023 Within the past 12 months,th e food you bought just didn't last and you didn't have enough money to get more: Sometimes True 08/18/2024 Transportation Answer Date Recorded In the past 12 months, has l ack of transportation kept you from medical appts, meetings, work or from getting things needed for daily living? No 08/18/2024 Utilities Answer Date Recorded In the past 12 months, has t he electric, gas, oil or water company threatened to shut off services in your home? No 08/18/2024 Depression Answer Date Recorded Patient Health Questionnaire-2 Score 5 08/31/2024 Internet Access Answer Date Recorded Internet Access Q1 Yes 08/18/2024 Internet Access Q2 Not on file 08/18/2024 Sex and Gender Information Value Date Recorded Sex Assigned at Male 06/22/2022 10:22 AM EDT Legal Sex Male 10:22 AM EDT Gender Identity Choose not to disclose 10:22 AM EDT Sexual Orientation Choose not to disclose 2021 10:22 AM EDT documented as of this encounter Miscellaneous Notes * Telephone Encounter - Lara Null - 10/25/2024 12:26 PM EST Tc from pt requesting reschedule Derm appt bhargavi Gonzalez. documented in this encounter Plan of Treatment Upcoming Encounters Date Type Department Care Team (Late st Contact Info) Description 11/29/2024 10:15 AM EDT Office Visit [facility] [address] [place] [address] Mary Beth Franklin NP [address] [place] [address] 12/05/2024 10:30 AM EDT Office Visit [facility] [address] [place] [address] Anayeli Gonzalez MD [address] [facility] [address] [place] [address] 01/05/2025 1:15 PM EDT Office Visit [facility] [address], [place] [phone] Kareen Felix MD [address] [place] [address] documented as of this encounter Visit Diagnoses Not on filedocumented in this encounter Additional Health Concerns Assessment Noted Time PHQ-9 Depression Total Score: 24 025 4:06 PM EST documented as of this encounter Care Teams Air Pollution Control Engineer Relationship Specialty Start Date End Date Mary Beth Franklin NP [address], [place] [phone] PCP - General Family Medicine 08/30/24 Dale Braun Production MechanicLaserist 11/18/23 documented as of this encounter
--- OUTSIDE RECORDS SUMMARY | 2024-11-28 16:31 | XMS_ITS | Encounter Summary ---
Author Organization [employer] Address [address] [facility] [address] [place] [address] Care Team Providers Care Business Area Manager Name Role Phone Mary Beth [place] NP Primary Care Provider [phone] Reason for Visit * Reason Onset Date Comments Med Refill 11/28/2024 Encounter Details Date Type Department Care Team ([facility] st Contact Info) Description 11/28/2024 Refill [facility] [address] [place] [address] Anayeli Gonzalez MD [address] [place] [address] Social History Tobacco Use Types Packs/Day Years [...] with others, in a hotel, in a longterm, living outside on the street, on a beach, in a car, or in a park 08/18/[address] you li ve. Do you have problems with any of the following? None of the above 08/18/2024 Food Insecurity Answer Date Recorded Within the past 12 months, y ou worried that your food would run out before you got money to buy more: Often true 11/22/2024 Within the past 12 months,th e food you bought just didn't last and you didn't have enough money to get more: Often true 09/2024 Transportation Answer Date Recorded In the past [...] AM EDT documented as of this encounter Plan of Treatment Upcoming Encounters Date Type Department Care Team ([facility] st Contact Info) Description 11/29/2024 10:15 AM EDT Office Visit [facility] [address] [place] [phone] Mary Beth [place] NP [address] [place] [address] 12/05/2024 10:30 AM EDT Office Visit [facility] [address] [place] [address] Anayeli Gonzalez MD [address] [place] [address] 01/05/2025 1:15 PM EDT Office Visit [facility] [address] [place] [phone] Kareen Felix MD [address] [place] [address] documented as of this encounter Visit Diagnoses Not on filedocumented in this encounter Additional Health Concerns Assessment Noted Time PHQ-9 Depression Total Score: 24 08/31/ 025 4:06 PM EST documented as of this encounter Care Teams Business Area Manager Relationship Specialty Start Date End Date Mary Beth [place] NP [address] [place] [address] PCP - General Family Medicine 08/30/24 Dale Braun Foundry Worker ApprenticeClerical Supervisor 11/18/23 documented as of this encounter
--- OUTSIDE RECORDS SUMMARY | 2024-11-28 16:31 | XMS_ITS | Encounter Summary ---
Author Organization [employer] Address [address] [facility] 7[address] [place] [address] Care Team Providers Care Provider Engagement Executive Name Role Phone Mary Beth [place] NP Primary Care Provider [phone] Reason for Visit * Reason Onset Date Comments Med Refill 11/28/2024 Encounter Details Date Type Department Care Team ([facility] st Contact Info) Description 11/28/2024 Refill [facility] [address] [place] [address] Joie No MD [address] [place] [address] Dermatitis Social History Tobacco Use Types Packs/Day Years [...] Upcoming Encounters Date Type Department Care Team ([facility] st Contact Info) Description 11/29/2024 10:15 AM EDT Office Visit [facility] [address] [place] [phone] Mary Beth [place] NP [address] [place] [address] 12/05/2024 10:30 AM EDT Office Visit [facility] [address] [place] [address] Anayeli [place] MD [address] [place] [address] 01/05/2025 1:15 PM EDT Office Visit [facility] [address] [place] [phone] Kareen Felix MD [address] [place] [address] documented as of this encounter Visit Diagnoses Diagnosis Dermatitis Contact dermatitis and other eczema, due to unspecified cause documented in this encounter Additional Health Concerns Assessment Noted Time PHQ-9 Depression Total Score: 24 025 4:06 PM EST documented as of this encounter Care Teams Provider Engagement Executive Relationship Specialty Start Date End Date Mary Beth [place] NP [address] [place] [address] PCP - General Family Medicine 08/30/24 Dale Braun Color TechnicianSecurity Controls Assessor 11/18/23 documented as of this encounter
--- OUTSIDE RECORDS SUMMARY | 2024-11-28 16:31 | XMS_ITS | Encounter Summary ---
Author Organization [employer] Address [address] [facility] [address] [place] [address] Care Team Providers Care Bunch Maker Name Role Phone Mary Beth [place] NP Primary Care Provider [phone] Reason for Visit * Reason Comments Rash Encounter Details Date Type Department Care Team ([facility] Contact Info) Description 11/28/2024 1:20 PM EDT Office Visit [facility] [address] [place] [address] Joie No MD [address] [place] [address] Genital sore (Primary Dx) Social History Tobacco Use Types Packs/Day Years [...] with others, in a hotel, in a senior living, living outside on the street, on a [...] AM EDT documented as of this encounter Last Filed Vital Signs Vital Sign Reading Time Taken Comments Blood Pressure 109/64 11/28/2024 1:16 PM EDT Pulse 69 11/28/2024 1:16 PM EDT Temperature 36.7 ??C (98.1 ??F) 11/28/2024 1:16 PM ED T Respiratory Rate 16 11/28/2024 1:16 PM EDT Oxygen Saturation 98% 11/28/2024 1:16 PM EDT Inhaled Oxygen Concentration - - Weight 71.2 kg (157 lb) 11/28/2024 1:16 PM EDT Height - - Body Mass Index 21.29 08/30/2024 8:49 AM EST documented in this encounter Progress Notes * Manoj Mohr - 11/28/2024 1:20 PM EDT Subjective Patient ID: Andrae Smith is a 29 y.o. adult with past medical history of chronic constipation anddepression who presents to walk in clinic for Rash. Referred to Dermatology 07/11/24. Pt reports he has noticed a rash on his lower abdomen/groin/pubic area, unsure about onset, seemingly 1 week or more. Reports itching and pain. Review of Systems Constitutional: Negative for fever and unexpected weight change. Respiratory: Negative for shortness of breath. Cardiovascular: Negative for chest pain. Gastrointestinal: Negative for abdominal pain. Genitourinary: Positive for genital sores. Negative for difficulty urinating. Skin: Positive for rash. Objective Visit Vitals BP 109/64 (BP Location: Right arm, Patient Position: Sitting, BP Cuff Size: Adult) Pulse 69 Temp 98.1 ??F (36.7 ??C) (Temporal) Resp 16 Body mass index is 21.29 kg/m??. Physical Exam Constitutional: Appearance: Normal appearance. Cardiovascular: Rate and Rhythm: Normal rate and regular rhythm. Heart sounds: Normal heart sounds. Pulmonary: Effort: Pulmonary effort is normal. Breath sounds: Normal breath sounds. Abdominal: General: Abdomen is flat. Palpations: Abdomen is soft. Tenderness: There is no abdominal tenderness. Genitourinary: Pubic Area: Rash (small lesion on mons pubis, flesh colored, raised) present. Penis: Lesions (3 lesion on distal shaft, flesh colored, raised) present. Neurological: General: No focal deficit present. Mental Status: Andrae is alert. Psychiatric: Behavior: Behavior normal. Problem List Items Addressed This Visit Genital sore - Primary Small lesion on Mons Pubis and approx. 3 lesions on distal shaft of penis. -ordered STI testing and sent HSV culture 11/28/24 Relevant Orders Chlamydia/N. Gonorrhoeae RNA, TMA, Urine Herpes Simplex Virus Culture with Reflex Typing HIV-1/2 Antigen and Antibodies, Fourth Generation, with Reflexes Syphilis Screen -No evidence of acute disease process. Suspect possible HSV versus STI. Symptoms mild. -Ordered STI testing and sent swab for culture. -ER precautions discussed. -Seek medical attention for worsening symptoms. IManoj, am serving as a scribe to document services personally performed by Dr. Hanson, based on the patient's response to questions by provider and providers statements to me. documented in this encounter Miscellaneous Notes * Assessment & Plan Note - Manoj Mohr - 11/28/2024 1:31 PM EDTAssociated Problem(s): Genital sore Small lesion on Mons Pubis and approx. 3 lesions on distal shaft of penis. -ordered STI testing and sent HSV culture 11/28/24 documented in this encounter Plan of Treatment Upcoming Encounters Date Type Department Care Team (Late st Contact Info) Description 11/29/2024 10:15 AM EDT Office Visit [facility] [address] [place] [phone] Mary Beth [place] NP [address] [place] [address] 12/05/2024 10:30 AM EDT Office Visit [facility] [address] [place] [address] Anayeli [place] MD [address] [place] [address] 01/05/2025 1:15 PM EDT Office Visit [facility] [address] [place] [address] Kareen Felix MD [address] [place] [address] Scheduled Orders Name Type Priority Associated Diagnoses Orde r Schedule Chlamydia/N. Gonorrhoeae RNA, TMA, Urine Microbiology Routine Genital sore Expected: 11/28/2024 (Approximate), Expires: 11/28/2025 Herpes Simplex Virus Culture with Reflex Typing Microbiology Routine Genital sore Expected: 11/28/2024 (Approximate), Expires: 11/28/2025 HIV-1/2 Antigen and Antibodies, Fourth Generation, with Reflexes Lab Routine Genital sore Expected: 11/28/2024 (Approximate), Expires: 11/28/2025 Syphilis Screen Lab Routine Genital sore Expected: 11/28/2024 (Approximate), Expires: 11/28/2025 documented as of this encounter Visit Diagnoses Diagnosis Genital sore- Primary Other symptoms involving abdomen and pelvis documented in this encounter Additional Health Concerns Assessment Noted Time PHQ-9 Depression Total Score: 24 025 4:06 PM EST documented as of this encounter Care Teams Bunch Maker Relationship Specialty Start Date End Date Mary Beth [place] NP [address] [place] [id number] PCP - General Family Medicine 08/30/24 Dale Braun Athlete ManagerChief Substation Operator 11/18/23 documented as of this encounter
--- OUTSIDE RECORDS SUMMARY | 2024-11-28 16:31 | XMS_ITS | Clinical Summary ---
Author Organization [employer] Address [address] [facility] 7[address] [place] [address] Care Team Providers Care Keyliner Name Role Phone Mary Beth Franklin NP Primary Care Provider [phone] Allergies No known active allergies Medications * This document contains information received from the source organization and may not represent a complete record from that organization. hydrocortisone (Anusol-HC) 2.5 % rectal cream Insert into the rectum 2 times daily. 28 g 07/03/20 24 Active clobetasol (Temovate) 0.05 % ointmentIndica tions:Dermatit is Apply topically 2 times daily. 45 g 1 07/11/20 24 Active buPROPion XL (Wellbutrin XL) 300 MG 24 hr tabletIndicati ons:Current severe episode of major depressive disorder without psychotic features without prior episode (CMS/HCC) Take 1 tablet (300 mg) by mouth in the morning. 30 tablet 11/03/19 25 025 Active doxepin (SINEquan) 50 MG capsule Take 1 capsule (50 mg) by mouth at bedtime. 30 capsule 11/03/19 25 025 Active buPROPion XL (Wellbutrin XL) 150 MG 24 hr tablet Take 150 mg by mouth in the morning. 05/30/20 24 025 Discontinued(Re order (will not trigger notification to Pharmacy)) doxepin (SINEquan) 150 MG capsule TAKE 2 CAPSULES BY MOUTH EVERY DAY AT BEDTIME 05/30/20 24 025 Discontinued(Re order (will not trigger notification to Pharmacy)) Active Problems Problem Noted Date Diagnosed Date Genital sore 11/28/2024 Assessment & Plan (11/28/2024 1:32 PM EDT): Small lesion on Mons Pubis and approx. 3 lesions on distal shaft of penis. -ordered STI testing and sent HSV culture 11/28/24 Chronic left shoulder pain 09/16/2024 Assessment & Plan (09/16/2024 10:25 AM EST): Reassuring PE, no weakness, no instability Pt offered physical therapy, imaging and/or referral to ortho vs watchful waiting Pt opts for watchful waiting as symptoms are gradually improving with time and denies severe disruptions YRN (generalized anxiety disorder) 08/31/2024 Current severe episode of ma александр depressive disorder without psychotic features without prior episode 08/30/2024 Assessment & Plan (09/16/2024 10:24 AM EST): Referral to , pt declines medications at this time or crisis Healthcare maintenance 08/30/2024 Assessment & Plan (09/16/2024 10:24 AM EST): Establishing care, Low cad risk, Routine labs ordered Referral to eye care and dental Anticipatory guidance reviewed Rash 07/11/2024 Assessment & Plan (07/11/2024 2:04 PM EST): Likely Dermatitis - Prescribed clobetasol (Temovate) 0.05 % ointment 07/11/24 - Referred to [facility] dermatology 07/11/24 - ER precautions discussed. - Seek medical attention for worsening symptoms. Dermatitis 07/11/2024 Assessment & Plan (07/11/2024 2:04 PM EST): Likely Dermatitis - Prescribed clobetasol (Temovate) 0.05 % ointment 07/11/24 - Referred to [facility] dermatology 07/11/24 - ER precautions discussed. - Seek medical attention for worsening symptoms. Chronic constipation 07/03/2024 External hemorrhoids 07/03/2024 Posttraumatic stress disorder 01/22/2015 Single major depressive episode, moderate 2014 Headache 08/10/2012 Encounters * This document contains information received from the source organization and may not represent a complete record from that organization. Date Type Department Care Team Description 11/28/2024 1:20 PM EDT Office Visit [facility] [address] [place] [phone] Joie No MD Genital sore (Primary Dx) 11/28[facility] [address] [address] Anayeli Gonzalez MD 11/28/[address] [facility] [address] [address] Joie No MD Dermatitis 11/22/2024 Patient Outreach [address] [address] Mary Beth Franklin NP Care Coordination (CHW outreach for SDOH housing search-referral completed ) 11/22/2024 Patient Outreach [facility] [address] [place], [place] [phone] Mary Beth Franklin NP Pre-visit Planning (SDOH positive, Tobacco screening negative.) 11/21/[address] [facility] [address] [place] [phone] Julissa Tavarez MA Chart Prep 11/06/2024 1:45 PM EDT Office Visit [facility] OPTOM[facility] [address] [place] [address] Tarka, Blank, OD Hypermetropia, bilateral (Primary Dx) 11/06/2024 Travel 11/03/2024 Population Health Risk Score [facility] Department [address] [phone] Provider, Population Health Generic 10/25/[address] [facility] MED[facility] [address] [place] [address] Mary Beth Franklin NP DERM APPOINTMENT 10/24/2024 Telephone [facility] [address] [place], [place] [phone] Mary Beth Franklin NP No Show 09/28/[address] [facility] [address] [place] [phone] Chantell Petersen MA November08/30/2024 9:00 AM EST Office Visit [facility] [address] [place] [address] Mary Beth Franklin NP Major depressive disorder with single episode, in partial remission (CMS/HCC) (Primary Dx); Healthcare maintenance; Chronic left shoulder pain 08/30/[address] [facility] & PEDS [address] [place], [place] [phone] Anayeli Gonzalez MD Results from Last 3 Months Family History Medical History Relation Name Comments Adjustment Disorder with Mixed Anxiety and Depressed M ood Mother Fibromyalgia Mother Hypertension Mother Insomnia Mother brain tumor Mother Relation Name Status Comments Mother Social History Tobacco Use Types Packs/Day Years Used Date Smoking Tobacco: Never Passive Smoke Exposure: Never Smokeless Tobacco: Never Tobacco Cessation:Counseling Given: Not Answered Alcohol Answer Date Recorded Q1: How often [...] with others, in a hotel, in a mcc, living outside on the street, on a [...] not to disclose 2021 10:22 AM EDT Last Filed Vital Signs Vital Sign Reading Time Taken Comments Blood Pressure 109/64 11/28/2024 1:16 PM EDT Pulse 69 11/28/2024 1:16 PM EDT Temperature 36.7 ??C (98.1 ??F) 11/28/2024 1:16 PM ED T Respiratory Rate 16 11/28/2024 1:16 PM EDT Oxygen Saturation 98% 11/28/2024 1:16 PM EDT Inhaled Oxygen Concentration - - Weight 71.2 kg (157 lb) 11/28/2024 1:16 PM EDT Height 182.9 cm (6') 08/30/2024 8:49 AM EST Body Mass Index 21.29 08/30/2024 8:49 AM EST Plan of Treatment Upcoming Encounters Date Type Department Care Team (Late st Contact Info) Description 11/29/2024 10:15 AM EDT Office Visit [facility] MEDICINE [address] [place] [address] Mary Beth Franklin NP [address] [place] [address] 12/05/2024 10:30 AM EDT Office Visit [facility] PEDS [address] [place] [address] Anayeli Gonzalez MD [address] [place] [address] 01/05/2025 1:15 PM EDT Office Visit [facility] MEDICINE [address] [place] [address] Kareen Felix MD [address] [place] [address] Health Maintenance Due Date Last Done Comments Family Planning (PISQ) 2012 Hepatitis A Vaccines (2 of 2 - 2-dose series) 05/22/2015 11/20/2014 DTaP/Tdap/Td Vaccines (7 - Td or Tdap) 05/16/2020 05/16/2010, 2001, 01/24/1999, Additional history exists COVID-19 Vaccine (2023- season) 2024 Influenza Vaccine (#1) 2024 6, 11/03/2013, 06/14/2012 Depression Monitoring (PHQ-9) 02/28/2025 08/31/2024, 08/31/2024 Alcohol/Substance Use Screening 07/03/2025 07/03/2024 Depression Screening 08/31/2025 08/31/2024, 08/31/19 Tobacco Screening 11/06/2025 11/06/2024 SDOH Screening 11/22/2025 11/22/2024 Zoster Vaccines (1 of 2) 2047 RSV Patients and Patients Aged 60 years or older (1 - 1-dose 75+ series) 2072 Hepatitis B Vaccines Completed 1997, 1997, 1997 HIB Vaccines Completed 02/03/1999, 0 04/1998, 1997, Additional history exists IPV Vaccines Completed 2001, 0 04/1998, 1997, Additional history exists Meningococcal Vaccine Aged Out 05/16/2010 No anh [place] eligible based on patient's age to complete this topic HPV Vaccines Completed 11/03/2013, 05/24, 05/16/2010 HIV Screening Completed 08/30/2024 Hepatitis C Screening Completed 08/30/2024 Pneumococcal Vaccine: Pediatrics (0 to 5 Years) and At-Risk Patients (6 to 49) Years) Aged Out No longer eligible based on patient's age to complete this topic RSV under 20 months Aged Out No longe r eligible based on patient's age to complete this topic Rotavirus Vaccines Aged Out No longer eligible based on patient's age to complete this topic Procedures Procedure Name Priority Date/Time Associated Diagnosis Comments RPR (MONITOR) W/REFL TITER Routine 08/30/2024 10:35 AM EST Healthcare maintenance HEPATITIS C AB W/REFL TO HCV RNA, QN, PCR Routine 08/30/2024 10:35 AM EST Healthcare maintenance HIV 1/2 ANTIGEN/ANTIBODY, FOURTH GENERATION W/RFL Routine 08/30/2024 10:35 AM EST Healthcare maintenance TSH W/REFLEX TO FT4 Routine 08/30/2024 1 0:35 AM EST Chronic constipation External hemorrhoids CBC WITH AUTO DIFFERENTIAL Routine 08/30/2024 10:35 AM EST Chronic constipation External hemorrhoids COMPREHENSIVE METABOLIC PANEL Routine 08/30/2024 10:35 AM EST Chronic constipation External hemorrhoids CHLAMYDIA/N. GONORRHOEAE RNA, TMA, UROGENITAL Routine 08/30/2024 10:23 AM EST Healthcare maintenance from Last 3 Months Results * TSH W/Reflex to FT4 (08/30/2024 10:35 AM EST) TSH reflex Free T4 0.43 0.32 - 4.0 uIU/mL [facility] Blood Venous blood specimen / Unknown 08/30/2024 10:35 AM EST 08/30/2024 11:08 AM EST us Anayeli Gonzalez MD LAB BLOOD ORDERABLES Final Result [facility] [address] [place] [phone] * (ABNORMAL) CBC auto differential (08/30/2024 10:35 AM EST) White Blood Count 8.3 4.8 - 10.8 X10*3/uL [facility] Red Blood Count 4.63 4.60 - 5.80 X10*6/uL [facility] Hemoglobin 14.9 14.0 - 18.0 g/dl [facility] Hematocrit 43.7 42.0 - 52.0 % [facility] Mean Corpuscular Volume 94.4 80.0 - 98.0 fL [facility] Mean Corpuscular Hemoglobin 32.2 27.0 - 33.0 pg [facility] Mean Corpuscular HGB Conc 34.1 31.0 - 36.0 g/dl [facility] Red Cell Distribution Width 11.4 11.0 - 16.0 % [facility] Platelet Count 218 160 - 400 X10*3/uL [facility] Mean Platelet Volume 10.7 9.4 - 12.4 fL [facility] Neutrophils Percent Auto 59.8 45 - 73 % [facility] Imm Gran Pct Auto 0.5(H) 0.0 - 0.4 % [facility] Lymphocytes Percent Auto 25.4 20 - 40 % [facility] Monocytes Percent Auto 8.7 2 - 11 % [facility] Eosinophils Percent Auto 5.1(H) 0 - 4 % [facility] Basophils Percent Auto 0.5 0 - 2 % [facility] NRBC Pct Auto 0.0 0.0 - 0.2 /100WBC [facility] Neutrophils Absolute Auto 5.0 2.0 - 8.3 x10*3/uL [facility] Imm Gran Abs Auto 0.04(H) 0.00 - 0.03 X10*3/uL [facility] Lymphocytes Absolute Auto 2.1 1.2 - 4.9 X10*3/uL [facility] Monocytes Absolute Auto 0.7 0.1 - 1.2 X10*3/uL [facility] Eosinophils Absolute Auto 0.4 0.0 - 0.4 X10*3/uL [facility] Basophils Absolute Auto 0.0 0.0 - 0.2 X10*3/uL [facility] NRBC Abs Auto 0.000 0.0 - 0.012 X10*3/uL [facility] Blood Venous blood specimen / Unknown 08/30/2024 10:35 AM EST 08/30/2024 11:08 AM EST us Anayeli Gonzalez MD LAB BLOOD ORDERABLES Final Result Performing Organization Address [facility] Co de Phone Number [facility] [address] [place] [phone] * Hepatitis C Antibody with Reflex to HCV, RNA, Quantitative, Real-Time PCR (08/30/2024 10:35 AM EST) Hepatitis C Antibody Nonreactive Nonreactive [facility] Comment:Antibodies to HCV no t detected; does not exclude early acuteHCV infection. Blood Venous blood specimen / Unknown 08/30/2024 10:35 AM EST 08/30/2024 11:08 AM EST us Mary Beth Franklin NP LAB BLOOD ORDERABLES Final Resul t Performing Organization Address [facility] Co de Phone Number [facility] [address] [place] [phone] * RPR (Monitor) with Reflex to??Titer (08/30/2024 10:35 AM EST) RPR (Monitor) w/Refl Titer NON-REACTI VE NON-REACT YONY [facility] Comment:THIS TEST WAS PERFOR MED AT:[facility] [place] [phone] SEGURA MD Rapid Plasma Reagin Ab Titer TNP [facility] Blood Venous blood specimen / Unknown 08/30/2024 10:35 AM EST 08/30/2024 11:08 AM EST Mary Beth Franklin CLIENT TECHNOLOGIES ANALYST LAB BLOOD ORDERABLES Final Resul t Performing Organization Address [facility] Co de Phone Number [facility] [address] [place] [address] [phone] * HIV-1/2 Antigen and Antibodies, Fourth Generation, with Reflexes (08/30/2024 10:35 AM EST) HIV AB/AG Nonreactive Nonreactive [facility] Comment:HIV-1 p24 Ag and/or HIV-1/HIV-2 Ab not detected.A test result that is nonreactive does not exclude thepossibility of exposure to or infection with HIV-1 and/orHIV-2. Nonreactive results in this assay for individualswith prior exposure to HIV-1 and/or HIV-2 may be due toantigen and antibody levels that are below the limit ofdetection of this assay.The VersionOne HIV Ag/Ab Combo assay result andsupplemental assay results should be interpreted inconjunction with the patient's clinical presentation,history and other laboratory results. If the results areinconsistent with clinical evidence, additional testing issuggested to confirm the result. Blood Venous blood specimen / Unknown 08/30/2024 10:35 AM EST 08/30/2024 11:08 AM EST us Mary Beth Franklin NP LAB BLOOD ORDERABLES Final Resul t Performing Organization Address [facility] Co de Phone Number [facility] [address] [place] [phone] [phone] * (ABNORMAL) Comprehensive Metabolic Panel (08/30/2024 10:35 AM EST) Sodium 141 135 - 145 mmol/L [facility] Potassium 4.3 3.3 - 5.1 mmol/L [facility] Chloride 108 96 - 108 mmol/L [facility] Carbon Dioxide 27 22 - 29 mmol/L [facility] Anion Gap 10(L) 12 - 20 [facility] Urea Nitrogen (BUN) 13 9 - 16 mg/dL [facility] Creatinine, Serum 1.00 0.5 - 1.4 mg/dL [facility] Estimated Glomerular Filt Rate >60 [facility] Comment:Chronic Kidney Disea se: Estimated GFR < 60 mL/min/1.87a7Hnjuzy Kidney Disease: Estimated GFR < 15 mL/min/1.73m2 Glucose 87 60 - 115 mg/dL [facility] Calcium 9.5 8.4 - 10.2 mg/dL [facility] Bilirubin, Total 0.5 0.0 - 1.0 mg/dL [facility] Aspartate Amino Transferase 23 5 - 37 U/L [facility] Alanine Aminotransferase 18 0 - 40 U/L [facility] Total Protein 7.4 6.5 - 8.0 g/dL [facility] Albumin Level 4.6 3.5 - 5.0 g/dL [facility] Alkaline Phosphatase 86 39 - 117 U/L [facility] Blood Venous blood specimen / Unknown 08/30/2024 10:35 AM EST 08/30/2024 11:08 AM EST us Anayeli Gonzalez MD LAB BLOOD ORDERABLES Final Result [facility] [address] [place] [phone] [phone] * Chlamydia/N. Gonorrhoeae RNA, TMA, Urogenitial (08/30/2024 10:23 AM EST) CT PCR NOT DETECTED Not Detect. [facility] Comment:A not detected test result does not exclude the possibilityof infection because test results can be affected byimproper specimen collection, concurrent antibiotic therapy,or the number of organisms in the specimen which may bebelow the sensitivity of the test. As with many diagnostictests, results from the Xpert CT/NG assay should beinterpreted in conjunction with other laboratory andclinical data available to the clinician.Xpert CT/NG performance has not been evaluated in patientsless than 14 years of age. The assay should not be used forthe evaluationof suspected sexual abuse or for other medico-legalindications. Additional testing is recommended in anycircumstance when false positive or false negative resultscould lead to adverse medical, social or psychologicalconsequences. NG PCR NOT DETECTED Not Detect. [facility] Comment:A not detected test result does not exclude the possibilityof infection because test results can be affected byimproper specimen collection, concurrent antibiotic therapy,or the number of organisms in the specimen which may bebelow the sensitivity of the test. As with many diagnostictests, results from the Xpert CT/NG assay should beinterpreted in conjunction with other laboratory andclinical data available to the clinician.Xpert CT/NG performance has not been evaluated in patientsless than 14 years of age. The assay should not be used forthe evaluationof suspected sexual abuse or for other medico-legalindications. Additional testing is recommended in anycircumstance when false positive or false negative resultscould lead to adverse medical, social or psychologicalconsequences. Urine (Urine, Random) 08/30/2024 10:23 AM EST 08/30/2024 4:20 PM EST Narrative [facility] - 08/31/2024 2:58 AM EST Urine us Mary Beth Franklin NP LAB MICROBIOLOGY - GENERAL ORDER JESS Final Result [facility] [address] [place] [phone] from Last 3 Months Insurance [employer] Care Teams Keyliner Relationship Specialty Start Date End Date Mary Beth Franklin NP [address] [place] [phone] PCP - General Family Medicine 08/30/24 Dale Braun Pharmacy Technician AssistantDuplicating Machine Operator 11/18/23
[2024-11-29 04:22] LABS: Syphilis Screen Nonreactive (Nonreactive)
[2024-11-29 04:42] LABS: HIV AB/AG Nonreactive (Nonreactive); HIV Num 1 0.08 S/CO (0.00-0.99)
== END 2024-11-28 13:35 | disposition home or self-care (01) ==
LOC: HO.HHCL 13:34
PROVIDERS: Visit Provider Family Medicine
DX: R39.89 Other symptoms and signs involving the genitourinary system (principal)
CPT/HCPCS: 36415; 86780; 87255; 87389

== ENCOUNTER 2024-11-29 09:52 | Outpatient (REF) | payer MEDICAID, SELFPAY ==
--- OUTSIDE RECORDS SUMMARY | 2024-11-29 10:54 | XMS_ITS | Encounter Summary ---
Author Organization [employer] Address [address] [facility] 7t [place] [address] Care Team Providers Care Food Processing Scientist Name Role Phone Mary Beth Franklin NP Primary Care Provider [phone] Encounter Details Date Type Department Care Team ([facility] st Contact Info) Description 11/29/2024 10:15 AM EDT Office Visit [facility] MEDICINE [address] [place] [address] Mary Beth Franklin NP [address] [place] [address] Elevated blood pressure reading (Primary Dx) Social History Tobacco Use Types [...] Answer Date Recorded Patient Health Questionnaire-9 Score 12 11/29/2024 Patient Health Questionnaire-9 Score 12 11/29/2024 Last PHQ-9: Questionnaire Data Not on file 0 11/29/2024 Housing Stability Answer Date Recorded What is your housing situation today? I do not have housing (Staying with others, in a hotel, in a assisted, living outside on the street, on a [...] Answer Date Recorded Patient Health Questionnaire-2 Score 4 11/29/2024 Internet Access Answer Date Recorded Internet Access [...] Sign Reading Time Taken Comments Blood Pressure 110/78 11/29/2024 10:25 AM EDT Pulse 99 11/29/2024 10:02 AM EDT Temperature 36.9 ??C (98.5 ??F) 11/29/2024 10:02 AM E DT Respiratory Rate 17 11/29/2024 10:02 AM EDT Oxygen Saturation 100% 11/29/2024 10:02 AM EDT Inhaled Oxygen Concentration - - Weight 70.8 kg (156 lb) 11/29/2024 10:02 AM EDT Height 182.9 cm (6') 11/29/2024 10:02 AM EDT Body Mass Index 21.16 11/29/2024 10:02 AM EDT documented in this encounter Plan of Treatment Upcoming Encounters Date Type Department Care Team (Late st Contact Info) Description 12/05/2024 10:30 AM EDT Office Visit [facility] [address] [place] [address] Anayeli Gonzalez MD [address] [place] [address] 01/05/2025 1:15 PM EDT Office Visit [facility] MED[facility]INE [address] [place] [address] Kareen Felix MD [address] [place], [place] [phone] documented as of this encounter Visit Diagnoses Diagnosis Elevated blood pressure reading- Primary Elevated blood pressure reading without diagnosis of hypertension documented in this encounter Additional Health Concerns Assessment Noted Time PHQ-9 Depression Total Score: 12 025 10:25 AM EDT documented as of this encounter Care Teams Food Processing Scientist Relationship Specialty Start Date End Date Mary Beth Franklin NP [address] [place] [address] PCP - General Family Medicine 08/30/24 Dale Braun Java EngineerPiping Drafter 11/18/23 documented as of this encounter
--- OUTSIDE RECORDS SUMMARY | 2024-11-29 10:54 | XMS_ITS | Encounter Summary ---
Author Organization [employer] Address [address] [facility] 7 [place] [address] Care Team Providers Care Customer Service Advocate Name Role Phone Mary Beth Franklin NP Primary Care Provider [phone] Reason for Visit * Reason Onset Date Comments DERM APPOINTMENT 10/25/2024 Encounter Details Date Type Department Care Team ([facility] [address] Contact Info) Description 10/25/2024 Telephone [facility] [address] [place], [place] [phone] Mary Beth Franklin NP [address] [place] [address] DERM APPOINTMENT Social History Tobacco Use Types [...] others, in a hotel, in a senior care, living outside on the street, on a [...] Description 12/05/2024 10:30 AM EDT Office Visit [facility] P[facility]S [address] [place] [address] Anayeli Gonzalez MD [address] [place] [address] 01/05/2025 1:15 PM EDT Office Visit [facility] [address] [place] [phone] Kareen Felix MD [address] [place] [address] documented as of this encounter Visit Diagnoses Not on filedocumented in this encounter Additional Health Concerns Assessment Noted Time PHQ-9 Depression Total Score: 24 025 4:06 PM EST documented as of this encounter Care Teams Customer Service Advocate Relationship Specialty Start Date End Date Mary Beth Franklin NP [address] [place] [address] PCP - General Family Medicine 08/30/24 Dale Braun Storage AdministratorStationary Engineer Supervisor 11/18/23 documented as of this encounter
--- OUTSIDE RECORDS SUMMARY | 2024-11-29 10:54 | XMS_ITS | Encounter Summary ---
Author Organization [employer] Address [address] [facility] 7t [place] [address] Care Team Providers Care Recovery Unit Operator Name Role Phone Mary Beth Franklin NP Primary Care Provider [phone] Encounter Details Date Type Department Care Team (Latest Contact Info) Description 11/29/2024 Travel Social History Tobacco Use Types Packs/Day Years [...] Description 12/05/2024 10:30 AM EDT Office Visit [facility] MED & PEDS [address] [place] [address] Anayeli Gonzalez MD [address] [place] [address] 01/05/2025 1:15 PM EDT Office Visit [facility] MEDICINE [address] [place] [address] Karene Felix MD [address] [place] [address] documented as of this encounter Visit Diagnoses Not on filedocumented in this encounter Additional Health Concerns Assessment Noted Time PHQ-9 Depression Total Score: 12 025 10:25 AM EDT documented as of this encounter Care Teams Recovery Unit Operator Relationship Specialty Start Date End Date Mary Beth Franklin NP [address] [place] [phone] PCP - General Family Medicine 08/30/24 Dale Braun Mold HolderFood Service Clerk 11/18/23 documented as of this encounter
--- OUTSIDE RECORDS SUMMARY | 2024-11-29 10:54 | XMS_ITS | Clinical Summary ---
Author Organization [employer] Address 75 [facility] 7t [place] [address] Care Team Providers Care Jacquard Loom Weaver Name Role Phone Mary Beth Franklin NP Primary Care Provider [phone] Allergies No known active allergies Medications * This document contains information received from the source organization and may not represent a complete record from that organization. buPROPion XL (Wellbutrin XL) 300 MG 24 hr tabletIndicati ons:Current severe episode of major depressive disorder without psychotic features without prior episode (CMS/HCC) Take 1 tablet (300 mg) by mouth in the morning. 30 tablet 11/03/19 25 025 Active doxepin (SINEquan) 50 MG capsule Take 1 capsule (50 mg) by mouth at bedtime. 30 capsule 11/03/19 25 025 Active clobetasol (Temovate) 0.05 % ointmentIndica tions:Dermatit is Apply topically 2 times daily. 45 g 1 11/30/19 25 Active hydrocortisone (Anusol-HC) 2.5 % rectal cream Insert into the rectum 2 times daily. 28 g 11/30/19 25 Active buPROPion XL (Wellbutrin XL) 150 MG 24 hr tablet Take 150 mg by mouth in the morning. 05/30/20 24 025 Discontinued(Re order (will not trigger notification to Pharmacy)) doxepin (SINEquan) 150 MG capsule TAKE 2 CAPSULES BY MOUTH EVERY DAY AT BEDTIME 05/30/20 24 025 Discontinued(Re order (will not trigger notification to Pharmacy)) hydrocortisone (Anusol-HC) 2.5 % rectal cream Insert into the rectum 2 times daily. 28 g 07/03/20 24 025 Discontinued(Re order (will not trigger notification to Pharmacy)) clobetasol (Temovate) 0.05 % ointmentIndica tions:Dermatit is Apply topically 2 times daily. 45 g 1 07/11/20 24 025 Discontinued(Re order (will not trigger notification to Pharmacy)) Active Problems Problem Noted Date Diagnosed Date Elevated blood pressure reading 11/29/2024 Genital sore 11/28/2024 Assessment & Plan (11/28/2024 [...] 0.05 % ointment 07/11/24 - Referred to [facility] dermatology 07/11/24 - ER precautions discussed. - Seek medical attention for worsening symptoms. Dermatitis 07/11/2024 Assessment & Plan (07/11/2024 2:04 PM EST): Likely Dermatitis - Prescribed clobetasol (Temovate) 0.05 % ointment 07/11/24 - Referred to [facility] dermatology 07/11/24 - ER precautions discussed. - Seek medical attention for worsening symptoms. Chronic constipation 07/03/2024 External hemorrhoids 07/03/2024 Posttraumatic stress disorder 01/22/2015 Single major depressive episode, moderate 2014 Headache 08/10/2012 Encounters * This document contains information received from the source organization and may not represent a complete record from that organization. Date Type Department Care Team Description 11/29/2024 10:15 AM EDT Office Visit [facility] MEDICINE [address] [place] [phone] Mary Beth Franklin NP Elevated blood pressure reading (Primary Dx) 11/29/2024 Travel 11/28/2024 1:20 PM EDT Office Visit [facility] WALK-IN [address] [address] Joie No MD Genital sore (Primary Dx) 11/28/2024 Refill [facility] [address] [address] Anayeli Gonzalez MD 11/28/2024 Refill [facility] [address] [address] Joie No MD Dermatitis 11/22/2024 Patient Outreach [address] [address] Mary Beth Franklin NP Care Coordination (CHW outreach for SDOH housing search-referral completed ) 11/22/2024 Patient Outreach [facility] CHC MED & PEDS [address] [place], [place] [phone] Mary Beth Franklin NP Pre-visit Planning (SDOH positive, Tobacco screening negative.) 11/21/2024 Telephone [facility] MEDICINE [address] [place] [address] Julissa Tavarez MA Chart Prep 11/06/2024 1:45 PM EDT Office Visit [facility] OPTOMETRY [address] [place] [address] Blank Goldberg OD Hypermetropia, bilateral (Primary Dx) 11/06/2024 Travel 11/03/2024 Population Health Risk Score [facility] (C[facility]) Department [address] [place] [phone] Provider, Population Health Generic 10/25/2024 Telephone [facility] MEDICINE [address] [place], [place] [phone] Mary Beth Franklin NP DERM APPOINTMENT 10/24/2024 Telephone [facility] CHC MED & PEDS [address] [place], [place] [phone] Mary Beth Franklin NP No Show 09/28/2024 Telephone [facility] MEDICINE [address] [place], [place] [phone] Chantell ePtersen MA November recall from Last 3 Months Family History Medical [...] with others, in a hotel, in a care home, living outside on the street, on a [...] Mass Index 21.16 11/29/2024 10:02 AM EDT Plan of Treatment Upcoming Encounters Date Type Department Care Team (Late st Contact Info) Description 12/05/2024 10:30 AM EDT Office Visit [facility] CHC MED & PEDS [address] [place] [address] Anayeli Gonzalez MD [address] [place] [address] 01/05/2025 1:15 PM EDT Office Visit [facility] MEDICINE [address] [place] [address] Kareen Felix MD [address] [place] [address] Health Maintenance Due Date Last Done Comments [...] 07/03/2025 07/03/2024 Depression Screening 08/31/2025 08/31/2024, 08/31/19 25 SDOH Screening 11/22/2025 11/22/2024 Tobacco Screening 11/29/2025 11/29/2024 Zoster Vaccines (1 of 2) 2047 RSV Patients and Patients Aged 60 years or older (1 - 1-dose 75+ series) 2072 Hepatitis B Vaccines Completed 1997, 1997, 1997 HIB Vaccines Completed 02/03/1999, 04/1998, 1997, Additional history exists IPV Vaccines Completed 2001, 04/1998, 1997, Additional history exists Meningococcal Vaccine Aged Out 05/16/2010 No anh [place] eligible based on patient's age to complete this topic HPV Vaccines Completed 11/03/2013, 05/24, 05/16/2010 Hepatitis C Screening Completed 08/30/2024 HIV Screening Completed 11/28/2024, 08/30/2024 Pneumococcal Vaccine: Pediatrics (0 to 5 [...] Procedure Name Priority Date/Time Associated Diagnosis Comments SYPHILIS SCREEN Routine 11/28/2024 1:36 PM EDT Genital sore HIV 1/2 ANTIGEN/ANTIBODY, FOURTH GENERATION W/RFL Routine 11/28/2024 1:36 PM EDT Genital sore HEPATITIS C AB W/REFL TO HCV RNA, QN, PCR Routine 08/30/2024 10:35 AM EST Healthcare maintenance from Last 3 Months or Most Recently Relevant to Health Maintenance Results * Syphilis Screen (11/28/2024 1:36 PM EDT) Syphilis Screen Nonreactive Nonreactive [facility] Blood Venous blood specimen / Unknown 11/28/2024 1:36 PM EDT 11/28/2024 4:05 PM EDT Joie No MD LAB BLOOD ORDERABLES Final Result [facility] [address] [place] [phone] * HIV-1/2 Antigen and Antibodies, Fourth Generation, with Reflexes (11/28/2024 1:36 PM EDT) HIV AB/AG Nonreactive Nonreactive [facility] Comment:HIV-1 p24 Ag and/or HIV-1/HIV-2 Ab not detected.A test result that is nonreactive does not exclude thepossibility of exposure to or infection with HIV-1 and/orHIV-2. Nonreactive results in this assay for individualswith prior exposure to HIV-1 and/or HIV-2 may be due toantigen and antibody levels that are below the limit ofdetection of this assay.The [employer] HIV Ag/Ab Combo assay result andsupplemental assay results should be interpreted inconjunction with the patient's clinical presentation,history and other laboratory results. If the results areinconsistent with clinical evidence, additional testing issuggested to confirm the result. Blood Venous blood specimen / Unknown 11/28/2024 1:36 PM EDT 11/28/2024 4:05 PM EDT us Joie No MD LAB BLOOD ORDERABLES Final Result Performing Organization Address [facility] Co de Phone Number [facility] [address] [place] [phone] * Hepatitis C Antibody with Reflex to HCV, RNA, Quantitative, Real-Time PCR (08/30/2024 10:35 AM EST) Hepatitis C Antibody Nonreactive Nonreactive [facility] Comment:Antibodies to HCV no t detected; does not exclude early acuteHCV infection. Blood Venous blood specimen / Unknown 08/30/2024 10:35 AM EST 08/30/2024 11:08 AM EST us Mary Beth Franklin NP LAB BLOOD ORDERABLES Final Resul t Performing Organization Address [facility] de Phone Number [facility] [address] [place] [phone] from Last 3 Months or Most Recently Relevant to Health Maintenance Insurance [facility] C3 Care Teams Jacquard Loom Weaver Relationship Specialty Start Date End Date Mary Beth Franklin NP [address] [place] [phone] PCP - General Family Medicine 08/30/24 Dale Braun Branch General ManagerWarehouse Team Leader 11/18/23
--- OUTSIDE RECORDS SUMMARY | 2024-11-29 10:54 | XMS_ITS | Encounter Summary ---
Author Organization [employer] Address 75 [facility] 7t [place] [address] Care Team Providers Care Stationary Steam Engineer Name Role Phone Mary Beth Franklin NP Primary Care Provider [phone] Reason for Visit * Reason Comments Rash Encounter Details Date Type Department Care Team ([facility] Contact Info) Description 11/28/2024 1:20 PM EDT Office Visit [facility] WALK-IN CENTER [address] [place] [address] Joie No MD [address] [place] [address] Genital sore (Primary Dx) Social History Tobacco [...] with others, in a hotel, in a detention, living outside on the street, on a [...] Description 12/05/2024 10:30 AM EDT Office Visit [facility] CHC MED & PEDS [address] [place], [place] [phone] Anayeli Gonzalez MD [address] [place] [address] 01/05/2025 1:15 PM EDT Office Visit [facility] MEDICINE [address] [place] [address] Kareen Felix MD [address] [place], [place] [phone] Scheduled Orders Name Type Priority Associated Diagnoses Orde r Schedule Chlamydia/N. Gonorrhoeae RNA, TMA, Urine Microbiology Routine Genital sore Expected: 11/28/2024 (Approximate), Expires: 11/28/2025 Herpes Simplex Virus Culture with Reflex Typing Microbiology Routine Genital sore Expected: 11/28/2024 (Approximate), Expires: 11/28/2025 documented as of this encounter Procedures Procedure Name Priority Date/Time Associated Diagnosis Comments SYPHILIS SCREEN Routine 11/28/2024 1:36 PM EDT Genital sore HIV 1/2 ANTIGEN/ANTIBODY, FOURTH GENERATION W/RFL Routine 11/28/2024 1:36 PM EDT Genital sore documented in this encounter Results * Syphilis Screen (11/28/2024 1:36 PM EDT) Syphilis Screen Nonreactive Nonreactive [facility] Blood Venous blood specimen / Unknown 11/28/2024 1:36 PM EDT 11/28/2024 4:05 PM EDT Joie No MD LAB BLOOD ORDERABLES Final Result Performing Organization Address [facility] Co de Phone Number [facility] [address] [place] [phone] * HIV-1/2 Antigen and Antibodies, Fourth Generation, with Reflexes (11/28/2024 1:36 PM EDT) HIV AB/AG Nonreactive Nonreactive [facility] Comment:HIV-1 p24 Ag and/or HIV-1/HIV-2 Ab not detected.A test result that is nonreactive does not exclude thepossibility of exposure to or infection with HIV-1 and/orHIV-2. Nonreactive results in this assay for individualswith prior exposure to HIV-1 and/or HIV-2 may be due toantigen and antibody levels that are below the limit ofdetection of this assay.The [employer] HIV Ag/Ab Combo assay result andsupplemental assay results should be interpreted inconjunction with the patient's clinical presentation,history and other laboratory results. If the results areinconsistent with clinical evidence, additional testing issuggested to confirm the result. Blood Venous blood specimen / Unknown 11/28/2024 1:36 PM EDT 11/28/2024 4:05 PM EDT Joie No MD LAB BLOOD ORDERABLES Final Result Performing Organization Address City/[facility]/ZIP Co de Phone Number [facility] [address] [place] [phone] documented in this encounter Visit Diagnoses Diagnosis Genital sore- Primary Other symptoms involving abdomen and pelvis documented in this encounter Additional Health Concerns Assessment Noted Time PHQ-9 Depression Total Score: 24 025 4:06 PM EST documented as of this encounter Care Teams Stationary Steam Engineer Relationship Specialty Start Date End Date Mary Beth Franklin NP [address] [place] [address] PCP - General Family Medicine 08/30/24 Dale Braun Terrazzo Layer HelperMortgage Professional 11/18/23 documented as of this encounter
--- OUTSIDE RECORDS SUMMARY | 2024-11-29 10:54 | XMS_ITS | Encounter Summary ---
Author Organization [employer] Address [address] [facility] 7t [place] [address] Care Team Providers Care Lace Tearing Supervisor Name Role Phone Mary Beth Franklin NP Primary Care Provider [phone] Reason for Visit * Reason Onset Date Comments Med Refill 11/28/2024 Encounter Details Date Type Department Care Team ([facility] st Contact Info) Description 11/28/2024 Refill [facility] WALK-IN CENTER [address] [place] [address] Anayeli Gonzalez MD [address] [place] [address] Social History Tobacco Use Types Packs/Day Years [...] with others, in a hotel, in a prison, living outside on the street, on a [...] Upcoming Encounters Date Type Department Care Team ([facility] st Contact Info) Description 12/05/2024 10:30 AM EDT Office Visit [facility] CHC MED & PEDS [address] [place] [address] Anayeli Gonzalez MD [address] [place] [address] 01/05/2025 1:15 PM EDT Office Visit [facility] MEDICINE [address] [place] [address] Kareen Felix MD [address] [place] [address] documented as of this encounter Visit Diagnoses Not on filedocumented in this encounter Additional Health Concerns Assessment Noted Time PHQ-9 Depression Total Score: 24 025 4:06 PM EST documented as of this encounter Care Teams Lace Tearing Supervisor Relationship Specialty Start Date End Date Mary Beth Franklin NP [address] [place] [address] PCP - General Family Medicine 08/30/24 Dale Braun Manager Of Supply ChainAdjunct Instructor Chemistry 11/18/23 documented as of this encounter
--- OUTSIDE RECORDS SUMMARY | 2024-11-29 10:54 | XMS_ITS | Encounter Summary ---
Author Organization [employer] Address 75 [facility] 7t [place] [address] Care Team Providers Care Potato Spotter Name Role Phone Mary Beth Franklin NP Primary Care Provider [phone] Reason for Visit * Reason Onset Date Comments Med Refill 11/28/2024 Encounter Details Date Type Department Care Team ([facility] st Contact Info) Description 11/28/2024 Refill [facility] WALK-IN CENTER [address] [place] [address] Joie No MD [address] [place] [address] Dermatitis Social History Tobacco Use Types Packs/Day [...] with others, in a hotel, in a retirement, living outside on the street, on a [...] Upcoming Encounters Date Type Department Care Team ([facility] Contact Info) Description 12/05/2024 10:30 AM EDT Office Visit [facility] CHC MED & PEDS [address] [place] [address] Anayeli Gonzalez MD [address] [place] [address] 01/05/2025 1:15 PM EDT Office Visit [facility] MEDICINE [address] [place] [address] Kareen Felix MD [address] [place] [address] documented as of this encounter Visit Diagnoses Diagnosis Dermatitis Contact dermatitis and other eczema, due to unspecified cause documented in this encounter Additional Health Concerns Assessment Noted Time PHQ-9 Depression Total Score: 24 025 4:06 PM EST documented as of this encounter Care Teams Potato Spotter Relationship Specialty Start Date End Date Mary Beth Franklin NP [address] [place] [address] PCP - General Family Medicine 08/30/24 Dale Braun Software Engineer Web ServicesOptical Goods Drilling Machine Operator 11/18/23 documented as of this encounter
[2024-11-29 14:39] LABS: CT PCR NOT DETECTED (Not Detect.); NG PCR NOT DETECTED (Not Detect.)
== END 2024-11-29 09:53 | disposition home or self-care (01) ==
LOC: HO.HHCL 09:52
PROVIDERS: Visit Provider Family Medicine
DX: R39.89 Other symptoms and signs involving the genitourinary system (principal)
CPT/HCPCS: 87491; 87591

== ENCOUNTER 2025-04-19 15:16 | Outpatient (REF) | payer MEDICAID, SELFPAY ==
--- NOTE | ~2025-04-19 | XR_ITS ---
EXAMINATION: XR SHOULDER, RIGHT CLINICAL INFORMATION: acute right shoulder pain COMPARISON: None available. TECHNIQUE: AP external rotation, Grashey, scapular Y, and axillary views of the right shoulder. FINDINGS: Normal bone mineralization. No fracture, dislocation, or suspicious bone lesion. Normal alignment. The glenohumeral joint is normal. The AC joint is normal. There is a type II acromion. No undersurface spurring. The subacromial space is preserved. Remainder of the soft tissue and bony structures appear normal. XR/XR shoulder RT min 2V IMPRESSION: Normal right shoulder. Electronically signed by: Grover Kelly MD 04/19/2025 04:50 PM EDT
--- OUTSIDE RECORDS SUMMARY | 2025-04-19 14:20 | XMS_ITS | Encounter Summary ---
Author Organization [employer] Address 75 [facility] 7t [place] [address] Care Team Providers Care Media Relations Associate Name Role Phone Mary Beth Franklin NP Primary Care Provider [phone] Reason for Visit * Reason Comments Shoulder Pain Encounter Details Date Type Department Care Team ([facility] st Contact Info) Description 04/19/2025 2:20 PM EDT Office Visit [facility] WALK-IN [place] [address] [place], [place] [phone] Rotator cuff strain, right, initial encounter (Primary Dx); Plantar wart of right foot Social History Tobacco Use Types Packs/Day Years [...] with others, in a hotel, in a penitentiary, living outside on the street, on a [...] got money to buy more: Often true 2024 Within the past 12 months,th e food you bought just didn't last and you didn't have enough money to get more: Sometimes True 11/29/2024 Transportation Answer Date Recorded In the past 12 months, has l ack of transportation kept you from medical appts, meetings, work or from getting things needed for daily living? No 08/18/2024 Utilities Answer Date Recorded In the past 12 months, has t he [employer], gas, oil or water company threatened to shut off services in your home? Yes 11/29/2024 Depression Answer Date Recorded Patient Health Questionnaire-2 [...] Sign Reading Time Taken Comments Blood Pressure 121/77 04/19/2025 2:32 PM EDT Pulse 68 04/19/2025 2:32 PM EDT Temperature 36.8 C (98.2 F) 04/19/2025 2:32 PM EDT Respiratory Rate 16 04/19/2025 2:32 PM EDT Oxygen Saturation 98% 04/19/2025 2:32 PM EDT Inhaled Oxygen Concentration - - Weight 67.6 kg (149 lb) 04/19/2025 2:32 PM EDT Height - - Body Mass Index 20.21 12/05/2024 10:45 AM EDT documented in this encounter Plan of Treatment Scheduled Orders Name Type Priority Associated Diagnoses Orde r Schedule XR Shoulder 2+ Views Right Imaging Routine Rotator cuff strain, right, initial encounter Expected: 04/19/2025, Expires: 04/19/2026 documented as of this encounter Visit Diagnoses Diagnosis Rotator cuff strain, right, initial encounter- Primary Plantar wart of right foot Plantar wart documented in this encounter Additional Health Concerns Assessment Noted Time PHQ-9 Depression Total Score: 12 025 10:25 AM EDT documented as of this encounter Care Teams Media Relations Associate Relationship Specialty Start Date End Date Mary Beth Franklin NP [address] [place] [address] PCP - General Family Medicine 08/30/24 Dale Braun Records AdministratorWildlife Protector 11/18/23 documented as of this encounter
--- OUTSIDE RECORDS SUMMARY | 2025-04-19 15:51 | XMS_ITS | Encounter Summary ---
Author Organization [employer] Address 75 [facility] 7t [place] [address] Care Team Providers Care Character Artist Name Role Phone Mary Beth Franklin NP Primary Care Provider [phone] Encounter Details Date Type Department Care Team ([facility] st Contact Info) Description 12/02/2024 Telephone [facility] MEDICINE [address] [place], [place] [phone] Mary Beth Franklin NP [address] [place] [address] Social History Tobacco Use Types Packs/Day Years [...] with others, in a hotel, in a fci, living outside on the street, on a [...] as of this encounter Plan of Treatment Not on file documented as of this encounter Visit Diagnoses Not on filedocumented in this encounter Additional Health Concerns Assessment Noted Time PHQ-9 Depression Total Score: 12 025 10:25 AM EDT documented as of this encounter Care Teams Character Artist Relationship Specialty Start Date End Date Mary Beth Franklin NP [address] [place] [address] PCP - General Family Medicine 08/30/24 Dale Braun Economic GeographerSingle Ending Machine Operator 11/18/23 documented as of this encounter
--- OUTSIDE RECORDS SUMMARY | 2025-04-19 15:51 | XMS_ITS | Encounter Summary ---
Author Organization [employer] Address [address] [facility] 7t [place] [address] Care Team Providers Care Teachers Aide Name Role Phone Mary Beth Franklin NP Primary Care Provider Reason for Visit * Reason Onset Date Comments Med Refill 11/28/2024 Encounter Details Date Type Department Care Team (Late st Contact Info) Description 11/28/2024 Refill [facility] WALK-IN CENTER [address] [place] [address] Anayeli Gonzalez MD [address] [place] [address] Social History Tobacco Use Types Packs/Day Years [...] with others, in a hotel, in a long term, living outside on the street, on a [...] AM EDT documented as of this encounter Functional Status * Over the past 2 weeks, how often have you been bothered by any of the following problems? Question Answer Date of Assessment Author Patient Health Questionnaire-2 Score 4 04/0 04/2025 10:25 AM EDT Julissa Tavarez MA * Little interest or pleasure in doing things Answer Date of Assessment Author Several days 11/29/2024 10:25 AM EDT Ebony Tavarez MA * Feeling down, depressed, or hopeless Answer Date of Assessment Author Nearly every day 11/29/2024 10:25 AM Julissa Nina MA * Trouble falling or staying asleep, or sleeping too much Answer Date of Assessment Author More than half the days 11/29/2024 10:25 AM Julissa Nina MA * Feeling tired or having little energy Answer Date of Assessment Author Several days 11/29/2024 10:25 AM KYLIET Ebony Tavarez MA * Poor appetite or overeating Answer Date of Assessment Author More than half the days 11/29/2024 10:25 AM Julissa Nina MA * Feeling bad about yourself - or that you are a failure or have let yourself or your family down Answer Date of Assessment Author More than half the days 11/29/2024 10:25 AM Julissa Nina MA * Trouble concentrating on things, such as reading the newspaper or watching television Answer Date of Assessment Author Not at all 11/29/2024 10:25 AM Ebony Nina MA * Moving or speaking so slowly that other people could have noticed? Or the opposite - being so fidgety or restless that you have been moving around a lot more than usual. Answer Date of Assessment Author Not at all 11/29/2024 10:25 AM Ebony Nina MA * Thoughts that you would be better off or hurting yourself in some way Answer Date of Assessment Author Several days 11/29/2024 10:25 AM Ebony Nina MA * Patient Health Questionnaire-9 Score Answer Date of Assessment Author 12 11/29/2024 10:25 AM Ebony Nina MA * How difficult have these problems made it for you to do your work, take care of things at home, or get along with other people? Answer Date of Assessment Author Very difficult 11/29/2024 10:25 AM Ebony Nina MA * Over the last 2 weeks, how often have you been bothered by any of the following problems? Question Answer Date of Assessment Author Feeling nervous, anxious, or on edge 0 04/2025 10:26 AM Julissa Nina MA Not being able to stop or co ntrol worrying 1 11/29/2024 10:26 AM Julissa Nina MA Worrying too much about diff erent things 3 11/29/2024 10:26 AM Julissa Nina MA Trouble relaxing 2 11/29/2024 10:26 AM Julissa Nina MA Being so restless that it is hard to sit still 0 11/29/2024 10:26 AM Julissa Nina MA Becoming easily annoyed or irritable 2 04/2025 10:26 AM EDT Julissa Tavarez MA Feeling afraid as if somethi ng awful might happen 1 11/29/2024 10:26 AM EDT Julissa Tavarez MA YRN-7 Total Score 9 11/29/2024 10:26 AM KYLIET Julissa Tavarez MA documented as of this encounter Plan of Treatment Not on file documented as of this encounter Visit Diagnoses Not on filedocumented in this encounter Additional Health Concerns Assessment Noted Time PHQ-9 Depression Total Score: 24 025 4:06 PM EST documented as of this encounter Care Teams Teachers Aide Relationship Specialty Start Date End Date Mary Beth Franklin NP [address] [place] [address] PCP - General Family Medicine 08/30/24 Dale Braun Limousine DriverSenior Construction Estimator 11/18/23 documented as of this encounter
--- OUTSIDE RECORDS SUMMARY | 2025-04-19 15:51 | XMS_ITS | Encounter Summary ---
Author Organization [employer] Address [address] [facility] [address] [place] [address] Care Team Providers Care Singe Machine Operator Name Role Phone Mary Beth Franklin NP Primary Care Provider [phone] Reason for Visit * Reason Onset Date Comments Med Refill 02/13/2025 Encounter Details Date Type Department Care Team (Late st Contact Info) Description 02/13/2025 Refill [facility] [address] [place] [address] Mary Beth Franklin NP [address] [place] [address] Dermatitis; Current severe episode of major depressive disorder without psychotic features without prior episode (CMS/HCC) Social History Tobacco Use Types Packs/Day Years [...] and other eczema, due to unspecified cause Current severe episode of major depressive disorder without psychotic features without prior episode (CMS/[facility], [facility]) documented in this encounter Additional Health Concerns Assessment Noted Time PHQ-9 Depression Total Score: 12 025 10:25 AM EDT documented as of this encounter Care Teams Singe Machine Operator Relationship Specialty Start Date End Date Mary Beth Franklin NP [address] [place] [address] PCP - General Family Medicine 08/30/24 Dale Braun After School CoordinatorBusiness Analyst Ecommerce 11/18/23 documented as of this encounter
--- OUTSIDE RECORDS SUMMARY | 2025-04-19 15:51 | XMS_ITS | Clinical Summary ---
Author Organization [employer] Address [address] [place] [address] 7[address] [place] [address] Care Team Providers Care Senior Courtroom Clerk Name Role Phone Mary Beth Franklin NP Primary Care Provider [phone] Allergies No known active allergies Medications * This document contains information received from the source organization and may not represent a complete record from that organization. hydrocortisone (Anusol-HC) 2.5 % rectal cream Insert into the rectum 2 times daily. 28 g 5 Active buPROPion XL (Wellbutrin XL) 300 MG 24 hr tabletIndicatio ns:Current severe episode of major depressive disorder without psychotic features without prior episode (CMS/HCC) Take 1 tablet (300 mg) by mouth in the morning. 30 tablet 1 5 Active doxepin (SINEquan) 50 MG capsuleIndicati ons:Current severe episode of major depressive disorder without psychotic features without prior episode (CMS/HCC) Take 1 capsule (50 mg) by mouth at bedtime. 30 capsule 1 5 Active fexofenadine (Kena) 180 MG tabletIndicatio ns:Dermatitis TAKE 1 TABLET BY MOUTH ONCE DAILY IF NEEDED FOR ALLERGIES 90 tablet 5 Active clobetasol (Temovate) 0.05 % ointmentIndicat ions:Dermatitis Apply topically 2 times daily. 45 g 1 5 Active ibuprofen 800 MG tabletIndicatio ns:Rotator cuff strain, right, initial encounter Take 1 tablet (800 mg) by mouth every 8 (eight) hours if needed for moderate pain or fever. 30 tablet 5 09/27/20 25 Active cyclobenzaprine (Flexeril) 10 MG tabletIndicatio ns:Rotator cuff strain, right, initial encounter One tab po at bedtime prn pain of muscles, do not drive with medicaion 30 tablet 5 Active Active Problems Problem Noted Date Diagnosed Date [...] without prior episode 08/30/2024 Assessment & Plan (01/09/2025 11:34 AM EDT): Mh improved, established care with psychiatry Assessment & Plan (09/16/2024 10:24 AM EST): [...] 0.05 % ointment 07/11/24 - Referred to [facility] dermatology 07/11/24 - ER precautions discussed. - Seek medical attention for worsening symptoms. Dermatitis 07/11/2024 Assessment & Plan (01/09/2025 11:34 AM EDT): Prn steroid helpful resolving Assessment & Plan (07/11/2024 2:04 PM EST): Likely Dermatitis - Prescribed clobetasol (Temovate) 0.05 % ointment 07/11/24 - Referred to [facility] dermatology 07/11/24 - ER precautions discussed. - Seek medical attention for worsening symptoms. Chronic constipation 07/03/2024 External hemorrhoids 07/03/2024 Posttraumatic stress disorder 01/22/2015 Single major depressive episode, moderate 2014 Headache 08/10/2012 Encounters * This document contains information received from the source organization and may not represent a complete record from that organization. Date Type Department Care Team Description 04/19/2025 2:20 PM EDT Office Visit [facility] [address] [place] [phone] Rotator cuff strain, right, initial encounter (Primary Dx); Plantar wart of right foot 04/19/2025 Travel 02/20/2025 Telephone [facility] [address] [place] [address] [phone] Anayeli Gonzalez MD No Show 02/13/2025 Refill [facility] [address] [place] [address] [phone] Mary Beth Franklin NP Dermatitis; Current severe episode of major depressive disorder without psychotic features without prior episode ([facility]) 02/13/2025 Travel 01/27/2025 Refill [facility] [address] [place], [place] [phone] Anayeli Gonzalez MD Dermatitis from Last 3 Months Family History Medical [...] (149 lb) 04/19/2025 2:32 PM EDT Height 182.9 cm (6') 12/05/2024 10:45 AM EDT Body Mass Index 20.21 12/05/2024 10:45 AM EDT Plan of Treatment Health Maintenance Due Date Last Done Comments Family Planning (PISQ) 2012 Hepatitis A Vaccines (2 of 2 - 2-dose series) 05/22/2015 11/20/2014 DTaP/Tdap/Td Vaccines (7 - Td or Tdap) 05/16/2020 05/16/2010, 2001, 01/24/1999, Additional history exists COVID-19 Vaccine ( - season) 2024 Influenza Vaccine (#1) 2025 6, 11/03/2013, 06/14/2012 Depression Monitoring 05/31/2025 11/29/2024, 025 Alcohol/Substance Use Screening 07/03/2025 07/03/2024 SDOH Screening 11/29/2025 11/29/2024 Disability Screening 02/13/2026 02/13/2025 Tobacco Screening 04/19/2026 04/19/2025 Zoster Vaccines (1 of 2) 2047 RSV [...] Completed 08/30/2024 HIV Screening Completed 11/28/2024, 08/30/2024 Meningococcal B Vaccine Aged Out No l onger eligible based on patient's age to complete this topic Pneumococcal Vaccine: Pediatrics (0 to 5 Years) and At-Risk Patients (6 to 49) Years Aged Out No longer eligible based on patient's age to complete this topic RSV under 20 months Aged Out No longe r eligible based on patient's age to complete this topic Rotavirus Vaccines Aged Out No longer eligible based on patient's age to complete this topic Procedures Procedure Name Priority Date/Time Associated Diagnosis Comments HIV 1/2 ANTIGEN/ANTIBODY, FOURTH GENERATION W/RFL Routine 11/28/2024 1:36 PM EDT Genital sore HEPATITIS C AB W/REFL TO HCV RNA, QN, PCR Routine 08/30/2024 10:35 AM EST Healthcare maintenance from Last 3 Months or Most Recently Relevant to Health Maintenance Results * HIV-1/2 Antigen and Antibodies, Fourth Generation, with Reflexes (11/28/2024 1:36 PM EDT) HIV AB/AG Nonreactive Nonreactive [facility] Comment:HIV-1 p24 Ag and/or HIV-1/HIV-2 Ab not detected.A test result that is nonreactive does not exclude thepossibility of exposure to or infection with HIV-1 and/orHIV-2. Nonreactive results in this assay for individualswith prior exposure to HIV-1 and/or HIV-2 may be due toantigen and antibody levels that are below the limit ofdetection of this assay.The [employer] HIV Ag/Ab Combo assay result andsupplemental assay results should be interpreted inconjunction with the patient's clinical presentation,history and other laboratory results. If the results areinconsistent with clinical evidence, additional testing issuggested to confirm the result. Blood Venous blood specimen / Unknown 11/28/2024 1:36 PM EDT 11/28/2024 4:05 PM EDT us Joie No MD LAB BLOOD ORDERABLES Final Result [facility] [address] [place] [phone] * Hepatitis C Antibody with Reflex to HCV, RNA, Quantitative, Real-Time PCR (08/30/2024 10:35 AM EST) Hepatitis C Antibody Nonreactive Nonreactive [facility] Comment:Antibodies to HCV no t detected; does not exclude early acuteHCV infection. Blood Venous blood specimen / Unknown 08/30/2024 10:35 AM EST 08/30/2024 11:08 AM EST us Mary Beth Franklin NP LAB BLOOD ORDERABLES Final Resul t [facility] [address] [place] [address] [phone] from Last 3 Months or Most Recently Relevant to Health Maintenance [facility] Care Teams Senior Courtroom Clerk Relationship Specialty Start Date End Date Mary Beth Franklin NP [address] [place] [address] PCP - General Family Medicine 08/30/24 Dale Braun Pull Up HandChildren'S Book Author 11/18/23
--- OUTSIDE RECORDS SUMMARY | 2025-04-19 15:51 | XMS_ITS | Encounter Summary ---
Author Organization [employer] Address [address] [facility] [address] [place] [address] Care Team Providers Care Recreation Teacher Name Role Phone Mary Beth Franklin NP Primary Care Provider [phone] Encounter Details Date Type Department Care Team (Latest Contact Info) Description 04/19/2025 Travel Social History Tobacco Use Types Packs/Day [...] with others, in a hotel, in a intermediate, living outside on the street, on a [...] documented as of this encounter Care Teams Recreation Teacher Relationship Specialty Start Date End Date Mary Beth Franklin NP [address] [place] [phone] PCP - General Family Medicine 08/30/24 Dale Braun Systems AccountantDirector Of Financial Planning 11/18/23 documented as of this encounter
--- OUTSIDE RECORDS SUMMARY | 2025-04-19 15:51 | XMS_ITS | Encounter Summary ---
Author Organization [employer] Address [address] [facility] [address] [place] [address] Care Team Providers Care Hotel Baggage Handler Name Role Phone Mary Beth Franklin NP Primary Care Provider [phone] Reason for Visit * Reason Onset Date Comments DERM APPOINTMENT 10/25/2024 Encounter Details Date Type Department Care Team ([facility] st Contact Info) Description 10/25/2024 Telephone [facility] [address] [place], [place] [phone] Mary Beth Franklin NP [address] [place] [address] DERM APPOINTMENT Social History Tobacco Use Types [...] documented in this encounter Plan of Treatment Not on file documented as of this encounter Visit Diagnoses Not on filedocumented in this encounter Additional Health Concerns Assessment Noted Time PHQ-9 Depression Total Score: 24 025 4:06 PM EST documented as of this encounter Care Teams Hotel Baggage Handler Relationship Specialty Start Date End Date Mary Beth Franklin NP [address] [place] [phone] PCP - General Family Medicine 08/30/24 Dale Braun Social Service DirectorComputer Assembler 11/18/23 documented as of this encounter
== END 2025-04-19 15:17 | disposition home or self-care (01) ==
LOC: HO.HHCX 15:16
PROVIDERS: Visit Provider Family Medicine
DX: S46.011A Strain of muscle(s) and tendon(s) of the rotator cuff of right shoulder, initial encounter (principal)
CPT/HCPCS: 73030

== ENCOUNTER → 2025-04-19 15:17 | Outpatient (BNV) | payer MEDICAID, SELFPAY | PROVIDERS: Visit Provider Radiology Diagnostic Radiology | DX: M25.511 Pain in right shoulder (principal) | CPT/HCPCS: 73030 ==